=== PATIENT | female | born 1975 | race American Indian/Alaskan Native ===

== ENCOUNTER 2018-10-22 11:49 | Inpatient (IN) | payer MEDICAID ==
[2018-10-22] MEDS ORDERED: BENTYL PO PRN (12:00)
[2018-10-22] MEDS ORDERED: ZOFRAN IV PRN (12:00)
[2018-10-22] MEDS ORDERED: IBUPROFEN PO PRN (12:00)
[2018-10-22] MEDS ORDERED: IMODIUM PO PRN (12:00)
[2018-10-22] MEDS ORDERED: DULCOLAX PR PRN (12:00)
[2018-10-22] MEDS ORDERED: ZOFRAN ODT PO PRN (12:00)
[2018-10-22] MEDS ORDERED: VISTARIL PO PRN (12:00)
[2018-10-22] MEDS ORDERED: ATIVAN IV PRN ×2 (12:00)
[2018-10-22] MEDS ORDERED: ROBAXIN PO PRN (13:00)
[2018-10-22] MEDS ORDERED: SENOKOT PO PRN (13:30)
[2018-10-22] MEDS ORDERED: VITAMIN B-1 100 MG, FOLVITE 1 MG, INFUVITE 10 ML in LACTATED RINGERS 1,000 ML IV ONE (14:00)
[2018-10-22] MEDS ORDERED: TYLENOL PO PRN (14:00)
[2018-10-22] MEDS ORDERED: ALUM-MAG HYDROX-SIMETH 200-200-20MG/5ML PO PRN (14:00)
[2018-10-22] MEDS: ATIVAN PO SCH ×3 (14:37→21:06)
[2018-10-22 15:17] LABS: INR 0.85 (0.87-1.13)
[2018-10-22 15:18] LABS: Hematocrit 37.3 % (30.3-42.9); Hemoglobin 12.4 gm/dl (10.1-14.3); Mean Corpuscular HGB Conc 33 % (30-34); Mean Corpuscular Volume 87 fl (79-97); Platelet Count 244 K/mm3 (140-440); Red Blood Count 4.27 M/mm3 (3.65-5.03); Red Cell Distribution Width 19.8 % (13.2-15.2)
[2018-10-22 15:23] LABS: Alanine Aminotransferase 39 units/L (7-56); Albumin 4.4 g/dL (3.9-5); BUN/Creatinine Ratio 18; Blood Urea Nitrogen 9 mg/dL (7-17); Calcium 9.5 mg/dL (8.4-10.2); Hemolysis Index 11
[2018-10-22 15:33] LABS: Bilirubin,Urine NEG (Negative); Blood,Urine NEG (Negative); Color,Urine Yellow (Yellow); Urobilinogen,Urine < 2.0 mg/dL (<2.0)
[2018-10-22 15:38] LABS: Amphetamine Screen,Urine PRESUMPTIVE NEGATIVE; Benzodiazepines Screen,Urine PRESUMPTIVE NEGATIVE; Cocaine Screen,Urine PRESUMPTIVE NEGATIVE; Methadone Screen,Urine PRESUMPTIVE NEGATIVE; Opiate Screen,Urine PRESUMPTIVE NEGATIVE
[2018-10-22 15:50] LABS: Cannabinoid Screen,Urine PRESUMPTIVE POSITIVE
[2018-10-22] MEDS: HABITROL TD PRN (15:57)
[2018-10-22] MEDS: LOVENOX SUB-Q SCH (15:57)
[2018-10-22] MEDS: NACL 0.9% 1000 ML 1,000 ML IV SCH (21:05)
[2018-10-22] MEDS: DESYREL PO SCH (21:06)
[2018-10-23] MEDS: ATIVAN PO SCH ×3 (02:59→09:00)
[2018-10-23] MEDS ORDERED: ATIVAN PO SCH ×2 (04:00→16:00)
--- NOTE | 2018-10-23 05:24 | History and Physical Report ---
History of Present Illness Date of examination: 10/22/18 Date of admission: 10/22/18 12:30 Chief complaint: Etof dependence for 20 years History of present illness: 43 y/o AAF with Hx of HTN has been ETODH dependent for 20 years.Heavy Alcohol use for 3 years.Patient drinks about 1 pint of Saba nearly every day for the last 3 years.Wants help with dependence and withdrawal symptoms.Patient has kecia nervous and Fidgety for last few days.No seizures. Past History Past Medical History: hypertension Past Surgical History: Other (LEAP ) Social history: lives with family, smoking (1 ppd), alcohol abuse (1 pint Saba every day), full code Family history: hypertension Medications and Allergies Allergies Allergy/AdvReac Type Severity Reaction Status Date / Time FRANK Inhibitors Allergy Hives Verified 08/28/18 04:37 hydrochlorothiazide Allergy Hives Verified 08/28/18 04:37 Home Medications Medication Instructions Recorded Confirmed Last Taken Type Amlodipine Besylate [Norvasc] 10 mg PO DAILY 10/22/18 10/22/18 10/22/17 09:00 History Atenolol [Tenormin] 25 mg PO DAILY 10/22/18 10/22/18 10/22/18 09:00 History AtorvaSTATin 10 mg PO DAILY 10/22/18 10/22/18 10/22/18 09:00 History Benztropine [Cogentin] 0.5 mg PO BID 10/22/18 10/22/18 10/20/18 09:00 History OLANZapine 20 mg PO HS 10/22/18 10/22/18 10/21/18 21:00 History clonazePAM [Klonopin] 1 mg PO DAILY PRN 10/22/18 10/22/18 10/22/18 09:00 History Active Meds: Active Medications Acetaminophen (Tylenol) 500 mg PO Q4H PRN PRN Reason: Temp > 100.4 Al Hydrox/Mg Hydrox/Simethicone (Alum-Mag Hydrox-Simeth [phone]/5ml) 30 ml PO Q6H PRN PRN Reason: Dyspepsia Bisacodyl (Dulcolax) 10 mg GA QDAY PRN PRN Reason: Bowel Movement Dicyclomine HCl (Bentyl) 20 mg PO Q6H PRN PRN Reason: Abdominal Discomfort Enoxaparin Sodium (Lovenox) 40 mg SUB-Q QDAY [facility] Last Admin: 10/22/18 15:57 Dose: 40 mg Documented by: Folic Acid (Folvite) 1 mg PO QDAY [facility] Hydroxyzine Pamoate (Vistaril) 50 mg PO Q6H PRN PRN Reason: Anxiety Mild Sodium Chloride (Nacl 0.9% 1000 Ml) 1,000 mls @ 75 mls/hr IV DIRECT [facility] Last Admin: 10/22/18 21:05 Dose: 75 mls/hr Documented by: Ibuprofen (Motrin) 600 mg PO Q8H PRN PRN Reason: Pain, Mild (1-3) Loperamide HCl (Imodium) 2 mg PO Q8H PRN PRN Reason: Diarrhea Lorazepam (Ativan) 1 mg IV Q4H PRN PRN Reason: Anxiety Severe Lorazepam (Ativan) 1 mg PO Q4HR [facility] Stop: 10/23/18 10:01 Last Admin: 10/23/18 02:59 Dose: 1 mg Documented by: Lorazepam (Ativan) 2 mg IV PRN PRN PRN Reason: Seizures Lorazepam (Ativan) 1 mg PO Q6HR [facility] Stop: 10/24/18 06:01 Lorazepam (Ativan) 1 mg PO Q8HR [facility] Stop: 10/25/18 06:01 Methocarbamol (Robaxin) 750 mg PO Q6H PRN PRN Reason: Muscle Ache Multivitamins (Theragran Tab) 1 each PO QDAY [facility] Nicotine (Habitrol) 21 mg TD QDAY PRN PRN Reason: Smoking Cessation Last Admin: 10/22/18 15:57 Dose: 21 mg Documented by: Ondansetron HCl (Zofran) 4 mg IV Q6H PRN PRN Reason: Moderat/Severe Nausea/Vomiting Ondansetron HCl (Zofran Odt) 4 mg PO Q6H PRN PRN Reason: Mild / Nausea And Vomiting Senna (Senokot) 17.2 mg PO QHS PRN PRN Reason: Constipation Thiamine HCl (Vitamin B-1) 100 mg PO QDAY [facility] Trazodone HCl (Desyrel) 50 mg PO QHS [facility] Last Admin: 10/22/18 21:06 Dose: 50 mg Documented by: Review of Systems All systems: negative Constitutional: fatigue, weakness, poor appetite Ears, nose, mouth and throat: no dysphagia, no hoarseness, no sore throat Breasts: deferred Cardiovascular: no chest pain, no orthopnea, no palpitations, no rapid/irregular heart beat, no shortness of breath Respiratory: no cough, no cough with sputum, no dyspnea on exertion Musculoskeletal: no neck stiffness, no neck pain, no shooting arm pain Integumentary: no rash, no pruritis, no redness Neurological: tremors, no seizures, no syncope Psychiatric: anxiety, difficulties concentrating, confusion, irritability Endocrine: no cold intolerance, no heat intolerance, no polyphagia, no excessive thirst Hematologic/Lymphatic: no easy bruising, no easy bleeding Allergic/Immunologic: no urticaria, no allergic rhinitis Exam - Constitutional Vitals: Temp Pulse Resp BP Pulse Ox 98.2 F 103 H 18 148/105 98 10/23/18 03:13 10/22/18 23:46 10/23/18 03:13 10/23/18 03:13 10/22/18 23:46 General appearance: Present: no acute distress, well-nourished - EENT Eyes: Present: PERRL ENT: hearing intact, clear oral mucosa - Neck Neck: Present: supple, normal ROM - Respiratory Respiratory effort: normal Respiratory: bilateral: CTA - Cardiovascular Heart rate: 78 Rhythm: regular Heart Sounds: Present: S1 & S2. Absent: rub, click - Extremities Extremities: no ischemia, pulses intact, pulses symmetrical, No edema Peripheral Pulses: within normal limits - Abdominal General gastrointestinal: Present: soft, non-tender, non-distended, normal bowel sounds Female genitourinary: Present: normal - Rectal Rectal Exam: deferred - Integumentary Integumentary: Present: clear, warm, dry - Musculoskeletal Musculoskeletal: gait normal, strength equal bilaterally - Psychiatric Psychiatric: appropriate mood/affect, intact judgment & insight - Neurologic Neurologic: CNII-XII intact, moves all extremities - Allied Health Allied health notes reviewed: nursing, case management Results - Labs CBC & Chem 7: 10/22/18 14:47 10/22/18 14:47 Labs: Laboratory Last Values WBC 5.7 K/mm3 (4.5-11.0) 10/22/18 14:47 RBC 4.27 M/mm3 (3.65-5.03) 10/22/18 14:47 Hgb 12.4 gm/dl (10.1-14.3) 10/22/18 14:47 Hct 37.3 % (30.3-42.9) 10/22/18 14:47 MCV 87 fl (79-97) 10/22/18 14:47 MCH 29 pg (28-32) 10/22/18 14:47 MCHC 33 % (30-34) 10/22/18 14:47 RDW 19.8 % (13.2-15.2) H 10/22/18 14:47 Plt Count 244 K/mm3 (140-440) 10/22/18 14:47 PT 12.0 Sec. (12.2-14.9) L 10/22/18 14:47 INR 0.85 (0.87-1.13) L 10/22/18 14:47 Sodium 136 mmol/L (137-145) L 10/22/18 14:47 Potassium 4.5 mmol/L (3.6-5.0) 10/22/18 14:47 Chloride 95.8 mmol/L (98-107) L 10/22/18 14:47 Carbon Dioxide 27 mmol/L (22-30) 10/22/18 14:47 Anion Gap 18 mmol/L 10/22/18 14:47 BUN 9 mg/dL (7-17) 10/22/18 14:47 Creatinine 0.5 mg/dL (0.7-1.2) L 10/22/18 14:47 Estimated GFR > 60 ml/min 10/22/18 14:47 BUN/Creatinine Ratio 18 % 10/22/18 14:47 Glucose 91 mg/dL (65-100) 10/22/18 14:47 Calcium 9.5 mg/dL (8.4-10.2) 10/22/18 14:47 Total Bilirubin 0.50 mg/dL (0.1-1.2) 10/22/18 14:47 AST 153 units/L (5-40) H 10/22/18 14:47 ALT 39 units/L (7-56) 10/22/18 14:47 Alkaline Phosphatase 63 units/L (35-129) 10/22/18 14:47 Total Protein 7.9 g/dL (6.3-8.2) 10/22/18 14:47 Albumin 4.4 g/dL (3.9-5) 10/22/18 14:47 Albumin/Globulin Ratio 1.3 % 10/22/18 14:47 Amylase 183 units/L (27-131) H 10/22/18 14:47 Lipase 35 units/L (13-60) 10/22/18 14:47 Urine Color Yellow (Yellow) 10/22/18 13:39 Urine Turbidity Clear (Clear) 10/22/18 13:39 Urine pH 6.0 (5.0-7.0) 10/22/18 13:39 Ur Specific [place] 1.015 (1.003-1.030) 10/22/18 13:39 Urine Protein 30 mg/dl mg/dL (Negative) 10/22/18 13:39 Urine Glucose (UA) Neg mg/dL (Negative) 10/22/18 13:39 Urine Ketones Neg mg/dL (Negative) 10/22/18 13:39 Urine Blood Neg (Negative) 10/22/18 13:39 Urine Nitrite Neg (Negative) 10/22/18 13:39 Urine Bilirubin Neg (Negative) 10/22/18 13:39 Urine Urobilinogen < 2.0 mg/dL (<2.0) 10/22/18 13:39 Ur Leukocyte Esterase Neg (Negative) 10/22/18 13:39 Urine WBC (Auto) 1.0 /HPF (0.0-6.0) 10/22/18 13:39 Urine RBC (Auto) 1.0 /HPF (0.0-6.0) 10/22/18 13:39 U Epithel Cells (Auto) < 1.0 /HPF (0-13.0) 10/22/18 13:39 Urine Opiates Screen Presumptive negative 10/22/18 14:47 Urine Methadone Screen Presumptive negative 10/22/18 14:47 Ur Barbiturates Screen Presumptive negative 10/22/18 14:47 Ur Phencyclidine Scrn Presumptive negative 10/22/18 14:47 Ur Amphetamines Screen Presumptive negative 10/22/18 14:47 U Benzodiazepines Scrn Presumptive negative 10/22/18 14:47 Urine Cocaine Screen Presumptive negative 10/22/18 14:47 U Marijuana (THC) Screen Presumptive positive 10/22/18 14:47 Drugs of Abuse Note Disclamer 10/22/18 14:47 Plasma/Serum Alcohol < 0.01 % (0-0.07) 10/22/18 14:47 Assessment and Plan Advance Directives: Yes (FC) VTE prophylaxis?: Chemical Plan of care discussed with patient/family: Yes - Patient Problems (1) EtOH dependence Current Visit: Yes Status: Chronic Qualifiers: Substance use status: in withdrawal Complication of substance-induced condition: with unspecified complication Qualified Code(s): F10.239 - Alcohol dependence with withdrawal, unspecified Plan to address problem: On Standard medication orders and General orders and Lorazepam taper for 3 days (2) HTN (hypertension) Current Visit: Yes Status: Chronic Qualifiers: Hypertension type: essential hypertension Qualified Code(s): I10 - Essential (primary) hypertension Plan to address problem: COnt antihypertensives (3) HLD (hyperlipidemia) Current Visit: Yes Status: Chronic Qualifiers: Hyperlipidemia type: mixed hyperlipidemia Qualified Code(s): E78.2 - Mixed hyperlipidemia Plan to address problem: Cont statins (4) Nicotine dependence Current Visit: Yes Status: Chronic Qualifiers: Nicotine product type: cigarettes Plan to address problem: Nicoderm patch added Counselled about smoking (5) DVT prophylaxis Current Visit: Yes Status: Acute Plan to address problem: OnLovenox and GI prophylaxis
[2018-10-23] MEDS: FOLVITE PO SCH (08:59)
[2018-10-23] MEDS: THERAGRAN Tab PO SCH (08:59)
[2018-10-23] MEDS: VITAMIN B-1 PO SCH (08:59)
[2018-10-23] MEDS: LOVENOX SUB-Q SCH (09:00)
[2018-10-23] MEDS: NACL 0.9% 1000 ML 1,000 ML IV SCH (11:22)
--- NOTE | 2018-10-23 12:53 | Progress Note ---
Assessment and Plan Assessment and plan: Patient is a 43 yo black woman with a history of bipolar disorder, dyslipidemia, hypertension and alcohol dependency who presents to [facility] Medical stabilization unit a direct admit for alcohol Detox aka medical stabilization. -Alcohol Dependency: [facility] protocol -Hypertension: continue antihypertensives, low salt diet -Dyslipidemia: Lipitor -Bipolar Disorder: continue Olazapine and Cogentin History Interval history: Patient was seen and examined. Follow-up on current diagnosis. Overnight uneventful. Patient denies any chest pain, shortness breath, nausea/vomiting or severe headaches. Imaging, nursing note, chart, labs and old chart reviewed. Discussed with patient. Hospitalist Physical - Physical exam Narrative exam: Gen: WDWN, NAD, Awake, Alert, Orientated HEENT: NCAT, EOMI, PERRL, OP Clear Neck: supple, no adenopathy, no thyromegaly, no JVD CVS/Heart: RRR, normal S1S2, pulses present bilaterally Chest/Lungs: CTA B, Symmetrical chest expansion, good air entry bilaterally GI/Abdomen: soft, NTND, good bowel sounds, no guarding or rebound /Bladder: no suprapubic tenderness, no CVA or paraspinal tenderness Extermity/Skin: no c/c/e, no obvious rash MSK: FROM x 4 Neuro: CN 2-12 grossly intact, no new focal deficits Psych: calm - Constitutional Vitals: Temp Pulse Resp BP Pulse Ox 98.3 F 93 H 18 134/100 92 10/23/18 11:48 10/23/18 08:15 10/23/18 11:48 10/23/18 11:48 10/23/18 11:48 General appearance: Present: no acute distress, well-nourished Results - Labs CBC & Chem 7: 10/22/18 14:47 10/22/18 14:47 Labs: Laboratory Last Values WBC 5.7 K/mm3 (4.5-11.0) 10/22/18 14:47 RBC 4.27 M/mm3 (3.65-5.03) 10/22/18 14:47 Hgb 12.4 gm/dl (10.1-14.3) 10/22/18 14:47 Hct 37.3 % (30.3-42.9) 10/22/18 14:47 MCV 87 fl (79-97) 10/22/18 14:47 MCH 29 pg (28-32) 10/22/18 14:47 MCHC 33 % (30-34) 10/22/18 14:47 RDW 19.8 % (13.2-15.2) H 10/22/18 14:47 Plt Count 244 K/mm3 (140-440) 10/22/18 14:47 PT 12.0 Sec. (12.2-14.9) L 10/22/18 14:47 INR 0.85 (0.87-1.13) L 10/22/18 14:47 Sodium 136 mmol/L (137-145) L 10/22/18 14:47 Potassium 4.5 mmol/L (3.6-5.0) 10/22/18 14:47 Chloride 95.8 mmol/L (98-107) L 10/22/18 14:47 Carbon Dioxide 27 mmol/L (22-30) 10/22/18 14:47 Anion Gap 18 mmol/L 10/22/18 14:47 BUN 9 mg/dL (7-17) 10/22/18 14:47 Creatinine 0.5 mg/dL (0.7-1.2) L 10/22/18 14:47 Estimated GFR > 60 ml/min 10/22/18 14:47 BUN/Creatinine Ratio 18 % 10/22/18 14:47 Glucose 91 mg/dL (65-100) 10/22/18 14:47 Calcium 9.5 mg/dL (8.4-10.2) 10/22/18 14:47 Total Bilirubin 0.50 mg/dL (0.1-1.2) 10/22/18 14:47 AST 153 units/L (5-40) H 10/22/18 14:47 ALT 39 units/L (7-56) 10/22/18 14:47 Alkaline Phosphatase 63 units/L (35-129) 10/22/18 14:47 Total Protein 7.9 g/dL (6.3-8.2) 10/22/18 14:47 Albumin 4.4 g/dL (3.9-5) 10/22/18 14:47 Albumin/Globulin Ratio 1.3 % 10/22/18 14:47 Amylase 183 units/L (27-131) H 10/22/18 14:47 Lipase 35 units/L (13-60) 10/22/18 14:47 Urine Color Yellow (Yellow) 10/22/18 13:39 Urine Turbidity Clear (Clear) 10/22/18 13:39 Urine pH 6.0 (5.0-7.0) 10/22/18 13:39 Ur Specific [place] 1.015 (1.003-1.030) 10/22/18 13:39 Urine Protein 30 mg/dl mg/dL (Negative) 10/22/18 13:39 Urine Glucose (UA) Neg mg/dL (Negative) 10/22/18 13:39 Urine Ketones Neg mg/dL (Negative) 10/22/18 13:39 Urine Blood Neg (Negative) 10/22/18 13:39 Urine Nitrite Neg (Negative) 10/22/18 13:39 Urine Bilirubin Neg (Negative) 10/22/18 13:39 Urine Urobilinogen < 2.0 mg/dL (<2.0) 10/22/18 13:39 Ur Leukocyte Esterase Neg (Negative) 10/22/18 13:39 Urine WBC (Auto) 1.0 /HPF (0.0-6.0) 10/22/18 13:39 Urine RBC (Auto) 1.0 /HPF (0.0-6.0) 10/22/18 13:39 U Epithel Cells (Auto) < 1.0 /HPF (0-13.0) 10/22/18 13:39 Urine Opiates Screen Presumptive negative 10/22/18 14:47 Urine Methadone Screen Presumptive negative 10/22/18 14:47 Ur Barbiturates Screen Presumptive negative 10/22/18 14:47 Ur Phencyclidine Scrn Presumptive negative 10/22/18 14:47 Ur Amphetamines Screen Presumptive negative 10/22/18 14:47 U Benzodiazepines Scrn Presumptive negative 10/22/18 14:47 Urine Cocaine Screen Presumptive negative 10/22/18 14:47 U Marijuana (THC) Screen Presumptive positive 10/22/18 14:47 Drugs of Abuse Note Disclamer 10/22/18 14:47 Plasma/Serum Alcohol < 0.01 % (0-0.07) 10/22/18 14:47
[2018-10-23] MEDS: NORVASC PO SCH (13:06)
[2018-10-23] MEDS: TENORMIN PO SCH (13:10)
[2018-10-23] MEDS: HABITROL TD PRN (19:50)
[2018-10-23] MEDS: COGENTIN PO SCH (21:18)
[2018-10-23] MEDS: DESYREL PO SCH (21:19)
[2018-10-23] MEDS ORDERED: NON-FORMULARY (Atorvastatin 10 MG) PO SCH (22:00)
[2018-10-23] MEDS ORDERED: OLANZAPINE 20 MG PO SCH (22:00)
[2018-10-24] MEDS: NACL 0.9% 1000 ML 1,000 ML IV SCH (01:37)
[2018-10-24] MEDS: TENORMIN PO SCH (10:13)
[2018-10-24] MEDS: LOVENOX SUB-Q SCH (10:13)
[2018-10-24] MEDS: FOLVITE PO SCH (10:14)
[2018-10-24] MEDS: COGENTIN PO SCH ×2 (10:14→21:16)
[2018-10-24] MEDS: THERAGRAN Tab PO SCH (10:14)
[2018-10-24] MEDS: VITAMIN B-1 PO SCH (10:14)
[2018-10-24] MEDS: NORVASC PO SCH (10:15)
[2018-10-24] MEDS ORDERED: ATIVAN PO SCH (14:00)
[2018-10-24] MEDS: ATIVAN PO SCH (17:21)
--- NOTE | 2018-10-24 18:18 | Progress Note ---
Assessment and Plan Assessment and plan: Patient is a 43 yo black woman with a history of bipolar disorder, dyslipidemia, hypertension and alcohol dependency who presents to [facility] Medical stabilization unit a direct admit for alcohol Detox aka medical stabilization. -Alcohol Dependency: [facility]SU protocol -Hypertension: continue antihypertensives, low salt diet -Dyslipidemia: Lipitor -Bipolar Disorder: continue Olazapine and Cogentin History Interval history: Patient was seen and examined. Follow-up on current diagnosis. Overnight uneventful. Patient denies any chest pain, shortness breath, nausea/vomiting or severe headaches. Imaging, nursing note, chart, labs and old chart reviewed. Discussed with patient. Hospitalist Physical - Physical exam Narrative exam: Gen: WDWN, NAD, Awake, Alert, Orientated HEENT: NCAT, EOMI, PERRL, OP Clear Neck: supple, no adenopathy, no thyromegaly, no JVD CVS/Heart: RRR, normal S1S2, pulses present bilaterally Chest/Lungs: CTA B, Symmetrical chest expansion, good air entry bilaterally GI/Abdomen: soft, NTND, good bowel sounds, no guarding or rebound /Bladder: no suprapubic tenderness, no CVA or paraspinal tenderness Extermity/Skin: no c/c/e, no obvious rash MSK: FROM x 4 Neuro: CN 2-12 grossly intact, no new focal deficits Psych: calm - Constitutional Vitals: Temp Pulse Resp BP Pulse Ox 98.9 F 68 20 113/77 99 10/24/18 16:28 10/24/18 16:28 10/24/18 16:28 10/24/18 16:28 10/24/18 16:28 General appearance: Present: no acute distress, well-nourished Results - Labs CBC & Chem 7: 10/22/18 14:47 10/22/18 14:47 Labs: Laboratory Last Values WBC 5.7 K/mm3 (4.5-11.0) 10/22/18 14:47 RBC 4.27 M/mm3 (3.65-5.03) 10/22/18 14:47 Hgb 12.4 gm/dl (10.1-14.3) 10/22/18 14:47 Hct 37.3 % (30.3-42.9) 10/22/18 14:47 MCV 87 fl (79-97) 10/22/18 14:47 MCH 29 pg (28-32) 10/22/18 14:47 MCHC 33 % (30-34) 10/22/18 14:47 RDW 19.8 % (13.2-15.2) H 10/22/18 14:47 Plt Count 244 K/mm3 (140-440) 10/22/18 14:47 PT 12.0 Sec. (12.2-14.9) L 10/22/18 14:47 INR 0.85 (0.87-1.13) L 10/22/18 14:47 Sodium 136 mmol/L (137-145) L 10/22/18 14:47 Potassium 4.5 mmol/L (3.6-5.0) 10/22/18 14:47 Chloride 95.8 mmol/L (98-107) L 10/22/18 14:47 Carbon Dioxide 27 mmol/L (22-30) 10/22/18 14:47 Anion Gap 18 mmol/L 10/22/18 14:47 BUN 9 mg/dL (7-17) 10/22/18 14:47 Creatinine 0.5 mg/dL (0.7-1.2) L 10/22/18 14:47 Estimated GFR > 60 ml/min 10/22/18 14:47 BUN/Creatinine Ratio 18 % 10/22/18 14:47 Glucose 91 mg/dL (65-100) 10/22/18 14:47 Calcium 9.5 mg/dL (8.4-10.2) 10/22/18 14:47 Total Bilirubin 0.50 mg/dL (0.1-1.2) 10/22/18 14:47 AST 153 units/L (5-40) H 10/22/18 14:47 ALT 39 units/L (7-56) 10/22/18 14:47 Alkaline Phosphatase 63 units/L (35-129) 10/22/18 14:47 Total Protein 7.9 g/dL (6.3-8.2) 10/22/18 14:47 Albumin 4.4 g/dL (3.9-5) 10/22/18 14:47 Albumin/Globulin Ratio 1.3 % 10/22/18 14:47 Amylase 183 units/L (27-131) H 10/22/18 14:47 Lipase 35 units/L (13-60) 10/22/18 14:47 Urine Color Yellow (Yellow) 10/22/18 13:39 Urine Turbidity Clear (Clear) 10/22/18 13:39 Urine pH 6.0 (5.0-7.0) 10/22/18 13:39 Ur Specific [place] 1.015 (1.003-1.030) 10/22/18 13:39 Urine Protein 30 mg/dl mg/dL (Negative) 10/22/18 13:39 Urine Glucose (UA) Neg mg/dL (Negative) 10/22/18 13:39 Urine Ketones Neg mg/dL (Negative) 10/22/18 13:39 Urine Blood Neg (Negative) 10/22/18 13:39 Urine Nitrite Neg (Negative) 10/22/18 13:39 Urine Bilirubin Neg (Negative) 10/22/18 13:39 Urine Urobilinogen < 2.0 mg/dL (<2.0) 10/22/18 13:39 Ur Leukocyte Esterase Neg (Negative) 10/22/18 13:39 Urine WBC (Auto) 1.0 /HPF (0.0-6.0) 10/22/18 13:39 Urine RBC (Auto) 1.0 /HPF (0.0-6.0) 10/22/18 13:39 U Epithel Cells (Auto) < 1.0 /HPF (0-13.0) 10/22/18 13:39 Urine Opiates Screen Presumptive negative 10/22/18 14:47 Urine Methadone Screen Presumptive negative 10/22/18 14:47 Ur Barbiturates Screen Presumptive negative 10/22/18 14:47 Ur Phencyclidine Scrn Presumptive negative 10/22/18 14:47 Ur Amphetamines Screen Presumptive negative 10/22/18 14:47 U Benzodiazepines Scrn Presumptive negative 10/22/18 14:47 Urine Cocaine Screen Presumptive negative 10/22/18 14:47 U Marijuana (THC) Screen Presumptive positive 10/22/18 14:47 Drugs of Abuse Note Disclamer 10/22/18 14:47 Plasma/Serum Alcohol < 0.01 % (0-0.07) 10/22/18 14:47
[2018-10-24] MEDS: DESYREL PO SCH (21:16)
[2018-10-25] MEDS: NACL 0.9% 1000 ML 1,000 ML IV SCH (01:44)
[2018-10-25] MEDS: ATIVAN PO SCH ×2 (03:01→10:03)
[2018-10-25] MEDS: FOLVITE PO SCH (09:59)
[2018-10-25] MEDS: THERAGRAN Tab PO SCH (09:59)
[2018-10-25] MEDS: COGENTIN PO SCH (09:59)
[2018-10-25] MEDS: NORVASC PO SCH (09:59)
[2018-10-25] MEDS: VITAMIN B-1 PO SCH (09:59)
[2018-10-25] MEDS: LOVENOX SUB-Q SCH (10:00)
[2018-10-25] MEDS: TENORMIN PO SCH (10:00)
--- NOTE | 2018-10-25 14:52 | Discharge Summary ---
Providers - Providers Date of Admission: 10/22/18 12:30 Date of discharge: 10/25/18 Attending physician: FATEMEH MOORE Primary care physician: JAVY ANTONIO MD Hospitalization Condition: Stable Hospital course: Patient is a 43 yo black woman with a history of bipolar disorder, dyslipidemia, hypertension and alcohol dependency who presents to [facility] Medical stabilization unit a direct admit for alcohol Detox aka medical stabilization. -Alcohol Dependency: [facility] protocol -Hypertension: continue antihypertensives, low salt diet -Dyslipidemia: Lipitor -Bipolar Disorder: continue Olazapine and Cogentin Disposition: DC-01 TO HOME OR SELFCARE Time spent for discharge: 34 min Core Measure Documentation - Palliative Care Palliative Care/ Comfort Measures: Not Applicable - Core Measures Any of the following diagnoses?: none - VTE Discharge Requirements Deep Vein Thrombosis/Pulmonary Embolism Present on Admission: No Has pt received <5 days of overlap therapy or INR<2.0: No Anticoagulant overlap therapy prescribed at discharge: No Contraindication No Overlap Therapy order at DC: Not Indicated Exam - Physical Exam Narrative exam: Gen: WDWN, NAD, Awake, Alert, Orientated HEENT: NCAT, EOMI, PERRL, OP Clear Neck: supple, no adenopathy, no thyromegaly, no JVD CVS/Heart: RRR, normal S1S2, pulses present bilaterally Chest/Lungs: CTA B, Symmetrical chest expansion, good air entry bilaterally GI/Abdomen: soft, NTND, good bowel sounds, no guarding or rebound /Bladder: no suprapubic tenderness, no CVA or paraspinal tenderness Extermity/Skin: no c/c/e, no obvious rash MSK: FROM x 4 Neuro: CN 2-12 grossly intact, no new focal deficits Psych: calm - Constitutional Vitals: Temp Pulse Resp BP Pulse Ox 98.3 F 82 17 146/96 99 10/25/18 07:30 10/25/18 10:00 10/25/18 07:30 10/25/18 10:00 10/25/18 07:30 Plan Activity: other (no strenous activity until cleared by [facility]) Diet: regular Follow up with: PRIMARY CARE, [Primary Care Provider] - 7 Days Prescriptions: Thiamine [Vitamin B-1] 100 mg PO QDAY #30 tablet
[2018-10-25 16:19] VITALS: BP 123/96
== END 2018-10-25 17:00 | disposition home or self-care (01) | DRG 896 ==
LOC: 2B-ACE 11:49 → UNDOADMIN 11:49 → MSU 12:30
PROVIDERS: ADMIT Internal Medicine; ATTEND Internal Medicine
DX: F10.239 Alcohol dependence with withdrawal, unspecified (principal); G93.40 Encephalopathy, unspecified; R74.0 Nonspecific elevation of levels of transaminase and lactic acid dehydrogenase [LDH]; I10 Essential (primary) hypertension; F17.210 Nicotine dependence, cigarettes, uncomplicated; E78.2 Mixed hyperlipidemia; F31.9 Bipolar disorder, unspecified; Z88.8 Allergy status to other drugs, medicaments and biological substances; Z79.899 Other long term (current) drug therapy; Z82.49 Family history of ischemic heart disease and other diseases of the circulatory system
CPT/HCPCS: 36415; 80053; 80307; 80320; 81001; 82150; 83690; 85027; 85610; 93005; 93010; G0378; A9270-GY; G0480; J1650; J2060; J3411; J7030; J7120

== ENCOUNTER 2019-01-03 04:38 | Emergency (ER) | payer MEDICAID ==
[2019-01-03 04:46] VITALS: BP 119/92
[2019-01-03] MEDS ORDERED: NACL 0.9% 1000 ML 1,000 ML IV ONE (05:06)
[2019-01-03 06:08] LABS: Basophils # (Auto) 0.1 K/mm3 (0.0-0.1); Eosinophils % (Auto) 0.7 % (0.0-4.3); Hemoglobin 13.6 gm/dl (10.1-14.3); Lymphocytes # (Auto) 1.8 K/mm3 (1.2-5.4); Mean Corpuscular HGB Conc 34 % (30-34); Mean Corpuscular Volume 86 fl (79-97); Monocytes # (Auto) 0.5 K/mm3 (0.0-0.8); Monocytes % (Auto) 8.3 % (0.0-7.3); Platelet Count 248 K/mm3 (140-440); Red Blood Count 4.66 M/mm3 (3.65-5.03); Red Cell Distribution Width 17.3 % (13.2-15.2)
[2019-01-03 06:26] LABS: Albumin 3.4 g/dL (3.9-5); BUN/Creatinine Ratio 19; Blood Urea Nitrogen 13 mg/dL (7-17); Calcium 8.7 mg/dL (8.4-10.2); Hemolysis Index 64
[2019-01-03 06:42] LABS: Alanine Aminotransferase 59 units/L (7-56)
[2019-01-03] MEDS ORDERED: ZOFRAN IV ONE (07:09)
[2019-01-03] MEDS ORDERED: MORPHINE IV ONE (07:09)
[2019-01-03 07:12] LABS: Bilirubin,Urine NEG (Negative); Blood,Urine NEG (Negative); Color,Urine Yellow (Yellow); Mucus,Urine FEW /HPF; Protein,Urine <15 mg/dL mg/dL (Negative)
--- NOTE | 2019-01-03 07:15 | Emergency Department Report ---
ED Abdominal Pain HPI - General Chief Complaint: Abdominal Pain Stated Complaint: STOMACH PAIN Time Seen by Provider: 01/03/19 07:06 Source: patient Mode of arrival: Ambulatory Limitations: No Limitations - History of Present Illness Initial Comments: This is a 43-year-old female nontoxic, well nourished in appearance, no acute signs of distress presents to the ED with c/o of nausea and vomiting and abdominal pain 1 month. Patient describes vomiting as food content and yellow gastric acid. Patient describes abdominal pain as cramping and aching with level of 10/10 diffuse. Patient denies chest pain, short of breath, fever, chills, headache, stiff neck, numbness or tingling. Patient agrees to drinking alcohol daily. Patient denies any diarrhea or constipation. Patient denies any recent travels. Patient stated allergies to HCTZ and Marty inhibitors. Patient denies any significant PMH. MD Complaint: abdominal pain -: month(s) (1) Location: diffuse Radiation: none Migration to: no migration Severity: mild Severity scale (0 -10): 10 Quality: cramping, aching Consistency: constant Improves With: nothing Worsens With: nothing Associated Symptoms: nausea, vomiting. denies: diarrhea, fever, chills, constipation, dysuria, hematemesis, hematochezia, melena, hematuria, anorexia, syncope - Related Data Home Medications Medication Instructions Recorded Confirmed Last Taken Amlodipine Besylate [Norvasc] 10 mg PO DAILY 10/22/18 10/22/18 10/22/17 09:00 Atenolol [Tenormin] 25 mg PO DAILY 10/22/18 10/22/18 10/22/18 09:00 AtorvaSTATin 10 mg PO DAILY 10/22/18 10/22/18 10/22/18 09:00 Benztropine [Cogentin] 0.5 mg PO BID 10/22/18 10/22/18 10/20/18 09:00 OLANZapine 20 mg PO HS 10/22/18 10/22/18 10/21/18 21:00 clonazePAM [Klonopin] 1 mg PO DAILY PRN 10/22/18 10/22/18 10/22/18 09:00 Previous Rx's Medication Instructions Recorded Last Taken Type Thiamine [Vitamin B-1] 100 mg PO QDAY #30 tablet 10/25/18 Unknown Rx Acetaminophen/Codeine [Tylenol 1 tab PO Q6H PRN #12 tab 01/03/19 Unknown Rx /Codeine # 3 tab] Ondansetron [Zofran Odt] 4 mg PO Q8HR PRN #20 tab.rapdis 01/03/19 Unknown Rx Allergies Allergy/AdvReac Type Severity Reaction Status Date / Time MARTY Inhibitors Allergy Hives Verified 08/28/18 04:37 hydrochlorothiazide Allergy Hives Verified 08/28/18 04:37 ED Review of Systems ROS: Stated complaint: STOMACH PAIN Other details as noted in HPI Constitutional: denies: chills, fever Eyes: denies: eye pain, eye discharge, vision change ENT: denies: ear pain, throat pain Respiratory: denies: cough, shortness of breath, wheezing Cardiovascular: denies: chest pain, palpitations Endocrine: no symptoms reported Gastrointestinal: abdominal pain, nausea, vomiting. denies: diarrhea Genitourinary: denies: urgency, dysuria, discharge Musculoskeletal: denies: back pain, joint swelling, arthralgia Skin: denies: rash, lesions Neurological: denies: headache, weakness, paresthesias Psychiatric: denies: anxiety, depression Hematological/Lymphatic: denies: easy bleeding, easy bruising ED Past Medical Hx - Past Medical History Hx Hypertension: Yes Hx Congestive Heart Failure: No Hx Diabetes: No Hx Asthma: No Hx COPD: Yes Additional medical history: high cholesterol - Surgical History Additional Surgical History: thyroid - Social History Smoking Status: Never Smoker Substance Use Type: None - Medications Home Medications: Home Medications Medication Instructions Recorded Confirmed Last Taken Type Amlodipine Besylate [Norvasc] 10 mg PO DAILY 10/22/18 10/22/18 10/22/17 09:00 History Atenolol [Tenormin] 25 mg PO DAILY 10/22/18 10/22/18 10/22/18 09:00 History AtorvaSTATin 10 mg PO DAILY 10/22/18 10/22/18 10/22/18 09:00 History Benztropine [Cogentin] 0.5 mg PO BID 10/22/18 10/22/18 10/20/18 09:00 History OLANZapine 20 mg PO HS 10/22/18 10/22/18 10/21/18 21:00 History clonazePAM [Klonopin] 1 mg PO DAILY PRN 01/01/0510/22/18 10/22/18 09:00 History Thiamine [Vitamin B-1] 100 mg PO QDAY #30 tablet 10/25/18 Unknown Rx Acetaminophen/Codeine [Tylenol 1 tab PO Q6H PRN #12 tab 01/03/19 Unknown Rx /Codeine # 3 tab] Ondansetron [Zofran Odt] 4 mg PO Q8HR PRN #20 tab.rapdis 01/03/19 Unknown Rx ED Physical Exam - General Limitations: No Limitations General appearance: alert, in no apparent distress - Head Head exam: Present: atraumatic, normocephalic - Eye Eye exam: Present: normal appearance - Neck Neck exam: Present: normal inspection, full ROM. Absent: tenderness, meningismus, lymphadenopathy - Respiratory Respiratory exam: Present: normal lung sounds bilaterally. Absent: respiratory distress, wheezes, rales, rhonchi, stridor, chest wall tenderness, accessory muscle use, decreased breath sounds, prolonged expiratory - Cardiovascular Cardiovascular Exam: Present: regular rate, normal rhythm, normal heart sounds. Absent: irregular rhythm, systolic murmur, diastolic murmur, rubs, gallop - GI/Abdominal GI/Abdominal exam: Present: soft, tenderness (diffuse), normal bowel sounds. Absent: distended, guarding, rebound, rigid, diminished bowel sounds - Expanded GI/Abdominal Exam Expanded GI/Abdominal exam: Absent: psoas sign, Doe's sign, Rovsing's sign, tenderness at Mcburney's Point, ascites - Extremities Exam Extremities exam: Present: normal inspection, full ROM - Back Exam Back exam: Present: normal inspection, full ROM. Absent: tenderness, CVA tenderness (R), CVA tenderness (L), muscle spasm, paraspinal tenderness, vertebral tenderness, rash noted - Neurological Exam Neurological exam: Present: alert, oriented X3 - Psychiatric Psychiatric exam: Present: normal affect, normal mood - Skin Skin exam: Present: warm, dry, intact, normal color. Absent: rash ED Course Vital Signs 01/03/19 01/03/19 04:44 05:03 Temperature 97.8 F 97.8 F Pulse Rate 104 H 102 H Respiratory 18 18 Rate Blood Pressure 119/92 119/92 O2 Sat by Pulse 97 97 Oximetry - Reevaluation(s) Reevaluation #1: 01/03/19 07:13 Patient is speaking in full sentences with no signs of distress noted. ED Medical Decision Making - Lab Data Result diagrams: 01/03/19 05:15 01/03/19 05:15 - Medical Decision Making This is a 43-year-old female that presents with abdominal pain with n/v. Patie nt is stable and was examined by me. There is diffuse abdominal tenderness. Negative signs of symptoms of appendicitis. Labs obtained. Lipse within normal limits. UA obtained. CT with contrast of abdomen obtained and dictated by the radiologist. Patient is notified of the report with no questions noted by the patient. Patient was instructed to decrease amount of alcohol and seek medical health for alcohol as her liver is being affected. Vital signs are stable prior to discharge. Patient received medical treatment in the ED which patient stated symptoms has resolved and subsided. A by mouth challenge has been obtained and patient tolerated well with no nausea vomiting. Patient was notified of strict precautions of appendicitis symptoms and to return to the ED if symptoms occurs as soon as possible. Patient was also instructed to Follow-up with a primary care doctor in 3-5 days or if symptoms worsen and continue return to emergency room as soon as possible. At time of discharge, the patient does not seem toxic or ill in appearance. No acute signs of distress noted. Patient agrees to discharge treatment plan of care. No further questions noted by the patient. Critical care attestation.: If time is entered above; I have spent that time in minutes in the direct care of this critically ill patient, excluding procedure time. 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 Prescriptions: Acetaminophen/Codeine [Tylenol /Codeine # 3 tab] 1 tab PO Q6H PRN #12 tab PRN Reason: Pain , Severe (7-10) Ondansetron [Zofran Odt] 4 mg PO Q8HR PRN #20 tab.rapdis PRN Reason: Nausea Referrals: [facility] [Other] - 3-5 Days PRIMARY CAREMD [Referring] - 3-5 Days AIYANA GRAY MD [Staff Physician] - 3-5 Days [facility] [Outside] - 3-5 Days [facility] [Outside] - 3-5 Days [facility] [Provider Group] - 2-3 Days Forms: Work/School Release Form(ED)
--- NOTE | 2019-01-03 08:37 | Cat Scan Report ---
PROCEDURE: CT ABDOMEN PELVIS W CON TECHNIQUE: CT imaging is obtained through the abdomen and pelvis in arterial and delayed phases foll owing intravenous administration of contrast HISTORY: abd pain COMPARISONS: None FINDINGS: Partially visualized intrathoracic contents are unremarkable. The liver, gallbladder, spleen, and adrenal glands are unremarkable. Kidneys show no worrisome lesions, hydronephrosis, or calculi. Ectopic right pelvic kidney. A simple appearing interpolar left renal cyst measures up to 2 cm. Urinary bladder is unremarkable. A couple o f functional right ovarian cyst measuring up to 14 mm. Anteverted uterus. Trace free fluid in the pel vis. Small and large bowel are normal in caliber. There is mild right sided retroperitoneal stranding and edema extending inferiorly from the region of the pancreatic uncinate and adjacent duodenum. The panc reatic body and tail appear normal. There is homogeneous pancreatic enhancement. No intraparenchymal or peripancreatic focal fluid collection identified. No small bowel wall thickening. Appendix is norm al. No pneumoperitoneum or focal fluid collection to suggest abscess formation. Scattered distal colo dustin diverticula without surrounding inflammatory findings. Aorta is normal in course and caliber. Splenic vasculature is normal in caliber and appears patent. Superficial soft tissues are unremarkable. No acute or aggressive appearing skeletal findings. IMPRESSION: Findings are suggestive of uncomplicated acute groove pancreatitis versus duodenitis and secondary in flammation of the pancreatic head and uncinate. Correlation with serum lipase and the patient's sympt oms is requested. This document is electronically signed by Jason Pratt MD., January 03 2019 08:34:56 AM ET
== END 2019-01-03 09:12 | disposition home or self-care (01) ==
LOC: ED 04:38
DX: R10.84 Generalized abdominal pain (principal); R11.2 Nausea with vomiting, unspecified; I10 Essential (primary) hypertension; J44.9 Chronic obstructive pulmonary disease, unspecified; E78.00 Pure hypercholesterolemia, unspecified; Z91.09 Other allergy status, other than to drugs and biological substances; Z88.8 Allergy status to other drugs, medicaments and biological substances
CPT/HCPCS: 36415; 74177; 80053; 81001; 83690; 84703; 85025; 96361; 96374; 96375; 99284; J2270; J2405; J7030; Q9967; 96367

== ENCOUNTER 2019-03-12 02:41 | Observation (INO) | payer MEDICAID ==
[2019-03-12 03:42] LABS: Basophils % (Auto) 0.2 % (0.0-1.8); Eosinophils % (Auto) 0.1 % (0.0-4.3); Hematocrit 37.7 % (30.3-42.9); Hemoglobin 12.4 gm/dl (10.1-14.3); Lymphocytes % (Auto) 9.1 % (13.4-35.0); Mean Corpuscular HGB Conc 33 % (30-34); Mean Corpuscular Volume 91 fl (79-97); Monocytes # (Auto) 0.7 K/mm3 (0.0-0.8); Monocytes % (Auto) 5.9 % (0.0-7.3); Platelet Count 182 K/mm3 (140-440); Red Blood Count 4.16 M/mm3 (3.65-5.03); Red Cell Distribution Width 16.6 % (13.2-15.2)
[2019-03-12 04:09] LABS: Alanine Aminotransferase 26 units/L (7-56); Albumin 4.3 g/dL (3.9-5); BUN/Creatinine Ratio 8; Blood Urea Nitrogen 4 mg/dL (7-17); Calcium 10.1 mg/dL (8.4-10.2); Hemolysis Index 4
[2019-03-12] MEDS ORDERED: ALUM-MAG HYDROX-SIMETH 200-200-20MG/5ML PO ONE (04:25)
[2019-03-12] MEDS ORDERED: LIDOCAINE VISCOUS 2% PO ONE (04:25)
[2019-03-12] MEDS ORDERED: NACL 0.9% 1000 ML 1,000 ML IV ONE (04:26)
[2019-03-12] MEDS ORDERED: ZOFRAN IV ONE (04:26)
[2019-03-12] MEDS ORDERED: PEPCID IV ONE (04:26)
[2019-03-12] MEDS ORDERED: MORPHINE IV ONE ×2 (04:26→06:12)
--- NOTE | 2019-03-12 04:35 | Emergency Department Report ---
ED Abdominal Pain HPI - General Chief Complaint: Abdominal Pain Stated Complaint: ABD/BACK/PAIN/VOMITING Time Seen by Provider: 03/12/19 04:20 Source: patient Mode of arrival: Ambulatory Limitations: No Limitations - History of Present Illness Initial Comments: The patient is a 43 y.o female who presents to the E.R. complaining of epigastric pain that began 2 weeks ago while at rest. Symptoms have been intermittent since onset and pt rates them as moderate in severity. Patient reports the symptoms are located in her upper abdomen and describes the quality as sharp. Pain radiates to throat. Symptoms associated with nausea, but denies any hematemesis, melena or hematochezia. Symptoms are improved with nothing and exacerbated by eating. Patient reports history of similar symptoms. Pertinent medical history includes alcohol abuse, h.pylori. MD Complaint: abdominal pain Onset/Timin -: week(s) Location: epigastric Radiation: other (THROAT) Migration to: no migration Severity: severe Severity scale (0 -10): 7 Quality: stabbing, sharp, dull Consistency: intermittent Improves With: nothing Worsens With: eating Associated Symptoms: nausea, vomiting. denies: chills, constipation, dysuria - Related Data LMP (females 10-50): 1 month Home Medications Medication Instructions Recorded Confirmed Last Taken Amlodipine Besylate [Norvasc] 10 mg PO DAILY 10/22/18 10/22/18 10/22/17 09:00 Atenolol [Tenormin] 25 mg PO DAILY 10/22/18 10/22/18 10/22/18 09:00 AtorvaSTATin 10 mg PO DAILY 10/22/18 10/22/18 10/22/18 09:00 Benztropine [Cogentin] 0.5 mg PO BID 10/22/18 10/22/18 10/20/18 09:00 OLANZapine 20 mg PO HS 10/22/18 10/22/18 10/21/18 21:00 clonazePAM [Klonopin] 1 mg PO DAILY PRN 10/22/18 10/22/18 10/22/18 09:00 Previous Rx's Medication Instructions Recorded Last Taken Type Thiamine [Vitamin B-1] 100 mg PO QDAY #30 tablet 10/25/18 Unknown Rx Acetaminophen/Codeine [Tylenol 1 tab PO Q6H PRN #12 tab 01/03/19 Unknown Rx /Codeine # 3 tab] Ondansetron [Zofran Odt] 4 mg PO Q8HR PRN #20 tab.rapdis 01/03/19 Unknown Rx Allergies Allergy/AdvReac Type Severity Reaction Status Date / Time FRANK Inhibitors Allergy Hives Verified 08/28/18 04:37 hydrochlorothiazide Allergy Hives Verified 08/28/18 04:37 ED Review of Systems ROS: Stated complaint: ABD/BACK/PAIN/VOMITING Other details as noted in HPI Comment: All other systems reviewed and negative Eyes: denies: eye pain ENT: denies: ear pain, throat pain Respiratory: denies: cough Cardiovascular: denies: chest pain Gastrointestinal: abdominal pain, nausea, vomiting. denies: diarrhea ED Past Medical Hx - Past Medical History Previous Medical History?: Yes Hx Hypertension: Yes Hx Congestive Heart Failure: No Hx Diabetes: No Hx Asthma: No Hx COPD: Yes Additional medical history: high cholesterol. h pylori. pancreatisis - Surgical History Past Surgical History?: Yes Additional Surgical History: thyroid. vag ablasion - Social History Smoking Status: Current Every Day Smoker Substance Use Type: Alcohol - Medications Home Medications: Home Medications Medication Instructions Recorded Confirmed Last Taken Type Amlodipine Besylate [Norvasc] 10 mg PO DAILY 10/22/18 10/22/18 10/22/17 09:00 History Atenolol [Tenormin] 25 mg PO DAILY 10/22/18 10/22/18 10/22/18 09:00 History AtorvaSTATin 10 mg PO DAILY 10/22/18 10/22/18 10/22/18 09:00 History Benztropine [Cogentin] 0.5 mg PO BID 10/22/18 10/22/18 10/20/18 09:00 History OLANZapine 20 mg PO HS 10/22/18 10/22/18 10/21/18 21:00 History clonazePAM [Klonopin] 1 mg PO DAILY PRN 10/22/18 10/22/18 10/22/18 09:00 History Thiamine [Vitamin B-1] 100 mg PO QDAY #30 tablet 10/25/18 Unknown Rx Acetaminophen/Codeine [Tylenol 1 tab PO Q6H PRN #12 tab 01/03/19 Unknown Rx /Codeine # 3 tab] Ondansetron [Zofran Odt] 4 mg PO Q8HR PRN #20 tab.rapdis 01/03/19 Unknown Rx ED Physical Exam - General Limitations: No Limitations General appearance: alert, in no apparent distress - Head Head exam: Present: atraumatic, normocephalic - Eye Eye exam: Present: normal appearance Pupils: Present: normal accommodation - ENT ENT exam: Present: normal exam - Neck Neck exam: Present: normal inspection - Respiratory Respiratory exam: Present: normal lung sounds bilaterally - Cardiovascular Cardiovascular Exam: Present: regular rate, normal rhythm - GI/Abdominal GI/Abdominal exam: Present: soft, tenderness (EPIGASTRIC), normal bowel sounds - Rectal Rectal exam: Present: deferred - Back Exam Back exam: Present: normal inspection - Neurological Exam Neurological exam: Present: alert, oriented X3 - Psychiatric Psychiatric exam: Present: normal affect - Skin Skin exam: Present: warm ED Course Vital Signs 03/12/19 03/12/19 03/12/19 02:46 05:23 05:31 Temperature 98 F Pulse Rate 132 H 110 H Respiratory 18 20 20 Rate Blood Pressure 143/118 Blood Pressure 193/138 [Left] O2 Sat by Pulse 100 100 100 Oximetry ED Medical Decision Making - Lab Data Result diagrams: 03/12/19 02:52 03/12/19 02:52 - Medical Decision Making The patient is a 43 y.o female who presents to the E/R complaining of epigastric pain that began 2 weeks ago while at rest. Symptoms have been intermittent since onset and pt rates them as moderate in severity. Patient reports the symptoms are located in her upper abdomen and describes the quality as sharp. Pain radiates to throat. Symptoms associated with nausea, but denies any hematemesis, melena or hematochezia. Symptoms are improved with nothing and exacerbated by eating. Patient reports history of similar symptoms. Pertinent medical history includes alcohol abuse, h.pylori. CT Showed mild pancreatitis, mild elev of lipase, t.gus, unable to get pain free, will admit for obs. - Differential Diagnosis CHOLECYSTITIS,PANCREATITIS,GERD Critical care attestation.: If time is entered above; I have spent that time in minutes in the direct care of this critically ill patient, excluding procedure time. ED Disposition Clinical Impression: Abdominal pain Qualifiers: Abdominal location: generalized Qualified Code(s): R10.84 - Generalized abdominal pain Pancreatitis, alcoholic, acute Qualifiers: Acute pancreatitis complication: unspecified Qualified Code(s): K85.20 - Alcohol induced acute pancreatitis without necrosis or infection Disposition: DC-09 OP ADMIT IP TO THIS HOSP Is pt being admited?: No Does the pt Need Aspirin: No Condition: Stable Instructions: Abdominal Pain (ED) Referrals: ANAND TALLEY NP [Primary Care Provider] - 3-5 Days
[2019-03-12 05:56] LABS: Mucus,Urine 1+ /HPF
[2019-03-12 06:13] LABS: Bilirubin,Urine NEG (Negative); Blood,Urine NEG (Negative); Color,Urine Yellow (Yellow); Urobilinogen,Urine < 2.0 mg/dL (<2.0)
--- NOTE | 2019-03-12 06:16 | Cat Scan Report ---
PROCEDURE: CT ABDOMEN PELVIS W CON TECHNIQUE: Computerized axial tomography of the abdomen and pelvis was performed after the IV inject ion of iodinated nonionic contrast. HISTORY: abd pain COMPARISONS: None . FINDINGS: Visualized lower thorax: No significant abnormality. Liver: . There is fatty infiltration of the liver.. Spleen: Normal size and attenuation. Gallbladder and biliary system: Normal. Pancreas: The pancreas size is normal. No mass is identified. There is slight. Appendiceal fat stran ding, mild pancreatitis is possible.. Adrenals: Hypertrophy of the left adrenal gland is noted.. Kidneys: Right kidney is identified within the pelvis. This has not changed. No hydronephrosis. There is a 2 cm cyst off the lateral left renal cortical region. No renal stones.. GI tract: The stomach is normal. The small bowel has normal caliber without obstruction. No ileus or enteritis. The cecum, appendix and colon are normal. Mild diverticular change in the distal colon. N o inflammatory process . Lymph nodes and mesentery: Normal. Vasculature: Normal.. Bladder: Normal. Reproductive organs: Normal. Peritoneum: No free fluid. Musculoskeletal structures: Mild degenerative changes of the lower lumbar spine with degenerative dis c changes at the L5-S1 level. Other: None . IMPRESSION: Slight stranding of the peripancreatic fat at the head of the pancreas, mild pancreatiti s is possible. No complications. No masses are identified. There is no evidence of intestinal or urinary tract obstruction. No ileus or enteritis. The appendix is normal. Right pelvic kidney is unchanged. . This document is electronically signed by Lana Myers DO., Mar 12 2019 06:13:56 AM ET
[2019-03-12] MEDS ORDERED: ATIVAN IV PRN ×3 (11:23)
[2019-03-12] MEDS ORDERED: TYLENOL PO PRN (11:25)
[2019-03-12] MEDS ORDERED: SODIUM CHLORIDE FLUSH SYRINGE 10 ML IV PRN (11:25)
[2019-03-12] MEDS ORDERED: ZOFRAN IV PRN (11:25)
[2019-03-12] MEDS ORDERED: MORPHINE IV PRN (11:25)
[2019-03-12] MEDS ORDERED: PROVENTIL IH PRN (11:25)
[2019-03-12] MEDS ORDERED: DILAUDID IV PRN (11:25)
[2019-03-12] MEDS ORDERED: NON-FORMULARY (Clonazepam [Klonopin] 1 MG) PO PRN (11:28)
--- NOTE | 2019-03-12 11:38 | History and Physical Report ---
History of Present Illness Date of examination: 03/12/19 Date of admission: 03/12/19 08:51 Chief complaint: Abdominal pain History of present illness: 43-year-old -[place]an female with past medical history significant for alcohol abuse, hypertension, pancreatitis, COPD presented to the emergency department with complaints of epigastric pain that worsened since yesterday. Pain was done, it are both in intensity, no alleviating or aggravating factors identified. With radiation to the back. Abdominal pain is associated with nausea and vomiting. Patient had episodes of 10 times of vomiting yesterday and diarrhea 4 times. Patient denied any fever, chills, cough. Patient was diagnosed with pancreatitis and was admitted here earlier about a month ago, but should continue to drink alcohol. Patient drinks about 6 packs of beer and a pint of hard liquor every day. REVIEW OF SYSTEMS: GENERAL: no weight change, no fatigue, no fever HEAD: no head ache EYES: no blurry vision, no acute visual loss EARS: no hearing loss, no discharge, no earache NOSE: no stuffiness, no sneezing, no discharge MOUTH, THROAT AND NECK: no bleeding gums, no sore throat, no swollen neck CARDIAC: no palpitations, no dyspnea on exertion, no orthopnea, no PND, no edema, no chest pain RESPIRATORY: no shortness of breath, no wheeze, no cough, no sputum, no hemoptysis, no asthma GI: As stated in the HPI. URINARY: no change in frequency, no urgency, no polyuria, no hematuria, no incontinence MUSCULOSKELETAL: no muscle weakness, no pain, no joint stiffness NEUROLOGIC: no loss of sensation/numbness, no tingling, no tremors, no weakness/paralysis HEMATOLOGIC: no anemia, no easy bruising SKIN: no rashes ENDOCRINE: no heat/cold intolerance, no polyuria, no polydipsia, no thyroid problems, no diabetes PSYCHIATRIC: no anxiety, no depression, no suicidal ideations Past History Past Medical History: COPD, hypertension Past Surgical History: Other (thyroidectomy) Social history: smoking (Half Pack cigarettes a day), alcohol abuse (as stated in HPI), full code. denies: prescription drug abuse, IV drug use Family history: hypertension (runs in the family) Medications and Allergies Allergies Allergy/AdvReac Type Severity Reaction Status Date / Time FRANK Inhibitors Allergy Hives Verified 08/28/18 04:37 hydrochlorothiazide Allergy Hives Verified 08/28/18 04:37 Home Medications Medication Instructions Recorded Confirmed Last Taken Type Amlodipine Besylate [Norvasc] 10 mg PO DAILY 10/22/18 03/12/19 10/22/17 09:00 History Atenolol [Tenormin] 25 mg PO DAILY 10/22/18 03/12/19 10/22/18 09:00 History AtorvaSTATin 10 mg PO DAILY 10/22/18 03/12/19 10/22/18 09:00 History OLANZapine 20 mg PO HS 10/22/18 03/12/19 10/21/18 21:00 History clonazePAM [Klonopin] 1 mg PO DAILY PRN 10/22/18 03/12/19 10/22/18 09:00 History Acetaminophen/Codeine [Tylenol 1 tab PO Q6H PRN #12 tab 01/03/19 03/12/19 Unknown Rx /Codeine # 3 tab] Ondansetron [Zofran Odt] 4 mg PO Q8HR PRN #20 tab.rapdis 01/03/19 03/12/19 Unknown Rx Active Meds: Active Medications Acetaminophen (Tylenol) 650 mg PO Q4H PRN PRN Reason: Pain MILD(1-3)/Fever >100.5/SZYMANSKI Albuterol (Proventil) 2.5 mg IH Q4HRT PRN PRN Reason: Shortness Of Breath Amlodipine Besylate (Norvasc) 10 mg PO DAILY AMANDEEP Atenolol (Tenormin) 25 mg PO DAILY AMANDEEP Hydromorphone HCl (Dilaudid) 0.5 mg IV Q3H PRN PRN Reason: Pain, Moderate (4-6) Folic Acid 1 mg/ Multivitamins /Minerals 10 ml/ Thiamine HCl 100 mg/ Sodium Chloride 1,000 mls @ 125 mls/hr IV .BY DURATION AMANDEEP Sodium Chloride (Nacl 0.9% 1000 Ml) 1,000 mls @ 125 mls/hr IV .BY DURATION AMANDEEP Lorazepam (Ativan) 2 mg IV Q1H PRN PRN Reason: CIWA-Ar 8-15 Lorazepam (Ativan) 4 mg IV Q1H PRN PRN Reason: CIWA-Ar 16-25 Lorazepam (Ativan) 4 mg IV Q15MIN PRN PRN Reason: CIWA-Ar >25 Miscellaneous Medication (Atorvastatin) 10 mg PO DAILY AMANDEEP Miscellaneous Medication (Clonazepam [Klonopin]) 1 mg PO DAILY PRN PRN Reason: Anxiety Miscellaneous Medication (Olanzapine) 20 mg PO HS AMANDEEP Morphine Sulfate (Morphine) 2 mg IV Q4H PRN PRN Reason: Pain, Moderate (4-6) Ondansetron HCl (Zofran) 4 mg IV Q8H PRN PRN Reason: Nausea And Vomiting Sodium Chloride (Sodium Chloride Flush Syringe 10 Ml) 10 ml IV BID AMANDEEP Sodium Chloride (Sodium Chloride Flush Syringe 10 Ml) 10 ml IV PRN PRN PRN Reason: LINE FLUSH Exam - Physical Exam Narrative exam: Not in cardiopulmonary distress. The patient appeared well nourished and normally developed. Vital signs as documented. Head exam is unremarkable. No scleral icterus . Neck is without jugular venous distension, thyromegaly, or carotid bruits. Lungs are clear to auscultation. Cardiac exam reveals regular rate and Rhythm. First and second heart sounds normal. No murmurs, rubs or gallops. Abdominal exam reveals tenderness all over her abdomen with no guarding or rigidity. Extremities are nonedematous and both femoral and pedal pulses are normal. 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 No focal weakness. - Constitutional Vitals: Temp Pulse Resp BP Pulse Ox 98 F 110 H 20 158/112 99 03/12/19 02:46 03/12/19 05:31 03/12/19 05:31 03/12/19 07:30 03/12/19 07:30 Results - Labs CBC & Chem 7: 03/12/19 02:52 03/12/19 02:52 Labs: Laboratory Last Values WBC 11.4 K/mm3 (4.5-11.0) H 03/12/19 02:52 RBC 4.16 M/mm3 (3.65-5.03) 03/12/19 02:52 Hgb 12.4 gm/dl (10.1-14.3) 03/12/19 02:52 Hct 37.7 % (30.3-42.9) 03/12/19 02:52 MCV 91 fl (79-97) 03/12/19 02:52 MCH 30 pg (28-32) 03/12/19 02:52 MCHC 33 % (30-34) 03/12/19 02:52 RDW 16.6 % (13.2-15.2) H 03/12/19 02:52 Plt Count 182 K/mm3 (140-440) 03/12/19 02:52 Lymph % (Auto) 9.1 % (13.4-35.0) L 03/12/19 02:52 Day % (Auto) 5.9 % (0.0-7.3) 03/12/19 02:52 Eos % (Auto) 0.1 % (0.0-4.3) 03/12/19 02:52 Baso % (Auto) 0.2 % (0.0-1.8) 03/12/19 02:52 Lymph # 1.0 K/mm3 (1.2-5.4) L 03/12/19 02:52 Day # 0.7 K/mm3 (0.0-0.8) 03/12/19 02:52 Eos # 0.0 K/mm3 (0.0-0.4) 03/12/19 02:52 Baso # 0.0 K/mm3 (0.0-0.1) 03/12/19 02:52 Seg Neutrophils % 84.7 % (40.0-70.0) H 03/12/19 02:52 Seg Neutrophils # 9.7 K/mm3 (1.8-7.7) H 03/12/19 02:52 Sodium 135 mmol/L (137-145) L 03/12/19 02:52 Potassium 3.8 mmol/L (3.6-5.0) 03/12/19 02:52 Chloride 92.5 mmol/L (98-107) L 03/12/19 02:52 Carbon Dioxide 22 mmol/L (22-30) 03/12/19 02:52 24 mmol/L 03/12/19 02:52 BUN 4 mg/dL (7-17) L 03/12/19 02:52 0.5 mg/dL (0.7-1.2) L 03/12/19 02:52 Estimated GFR > 60 ml/min 03/12/19 02:52 8 % 03/12/19 02:52 Glucose 165 mg/dL (65-100) H 03/12/19 02:52 Calcium 10.1 mg/dL (8.4-10.2) 03/12/19 02:52 1.40 mg/dL (0.1-1.2) H 03/12/19 02:52 AST 39 units/L (5-40) 03/12/19 02:52 ALT 26 units/L (7-56) 03/12/19 02:52 100 units/L (35-129) 03/12/19 02:52 7.8 g/dL (6.3-8.2) 03/12/19 02:52 4.3 g/dL (3.9-5) 03/12/19 02:52 1.2 % 03/12/19 02:52 105 units/L (13-60) H 03/12/19 02:52 HCG, Qual Negative (Negative) 03/12/19 04:44 Yellow (Yellow) 03/12/19 05:19 Slightly-cloudy (Clear) 03/12/19 05:19 5.0 (5.0-7.0) 03/12/19 05:19 Ur Specific [place] 1.020 (1.003-1.030) 03/12/19 05:19 100 mg/dl mg/dL (Negative) 03/12/19 05:19 50 mg/dL (Negative) 03/12/19 05:19 80 mg/dL (Negative) 03/12/19 05:19 Neg (Negative) 03/12/19 05:19 Neg (Negative) 03/12/19 05:19 Ur Reducing Substances Not Reportable 03/12/19 05:19 Neg (Negative) 03/12/19 05:19 Not Reportable 03/12/19 05:19 < 2.0 mg/dL (<2.0) 03/12/19 05:19 Ur Leukocyte Esterase Neg (Negative) 03/12/19 05:19 3.0 /HPF (0.0-6.0) 03/12/19 05:19 2.0 /HPF (0.0-6.0) 03/12/19 05:19 U Epithel Cells (Auto) 2.0 /HPF (0-13.0) 03/12/19 05:19 1+ /HPF 03/12/19 05:19 Assessment and Plan Assessment and plan: 43-year-old -[place] female with past medical history significant for hypertension, pancreatitis, alcohol abuse presents to the emergency department with complaints of severe abdominal pain. Acute pancreatitis - Elevated lipase, right upper quadrant pain, CT suggestive of pancreatitis, no complications - Pain control, start his clear liquid diet as tolerated - IV fluids Alcohol abuse - CIWA protocol, banana bag Hypertension - Resume all medications COPD - Not in exacerbation, continue his albuterol when necessary DVT prophylaxis - Lovenox Disposition - Admitted to inpatient care Advance Directives: Yes VTE prophylaxis?: Chemical Plan of care discussed with patient/family: Yes
[2019-03-12] MEDS ORDERED: 1: FOLVITE 1 MG, INFUVITE 10 ML, VITAMIN B-1 100 MG in NACL 0.9% 1000 ML 988.8 ML 2: NA IV SCH (12:00)
[2019-03-12] MEDS: TENORMIN PO SCH (12:41)
[2019-03-12] MEDS: NORVASC PO SCH (12:44)
[2019-03-12] MEDS: VITAMIN B-1 100 MG, FOLVITE 1 MG, INFUVITE 10 ML in NACL 0.9% 1000 ML 1,000 ML IV SCH (14:03)
[2019-03-12] MEDS ORDERED: NORMODYNE IV PRN (18:06)
[2019-03-12] MEDS: DILAUDID IV PRN ×2 (18:16→22:26)
[2019-03-12] MEDS ORDERED: OLANZAPINE 20 MG PO SCH (22:00)
[2019-03-12] MEDS: SODIUM CHLORIDE FLUSH SYRINGE 10 ML IV SCH ×2 (22:00→22:34)
[2019-03-12] MEDS: LOVENOX SUB-Q SCH (22:26)
[2019-03-13 05:50] LABS: Basophils % (Auto) 0.4 % (0.0-1.8); Eosinophils % (Auto) 0.2 % (0.0-4.3); Hematocrit 32.7 % (30.3-42.9); Lymphocytes # (Auto) 0.8 K/mm3 (1.2-5.4); Lymphocytes % (Auto) 8.4 % (13.4-35.0); Mean Corpuscular HGB Conc 34 % (30-34); Mean Corpuscular Volume 90 fl (79-97); Monocytes # (Auto) 0.6 K/mm3 (0.0-0.8); Monocytes % (Auto) 6.5 % (0.0-7.3); Platelet Count 149 K/mm3 (140-440); Red Blood Count 3.65 M/mm3 (3.65-5.03); Red Cell Distribution Width 16.6 % (13.2-15.2)
[2019-03-13 06:00] LABS: BUN/Creatinine Ratio 5; Blood Urea Nitrogen 2 mg/dL (7-17); Calcium 8.7 mg/dL (8.4-10.2); Hemolysis Index 4
[2019-03-13] MEDS: NACL 0.9% 1000 ML 1,000 ML IV SCH ×2 (08:56)
[2019-03-13] MEDS ORDERED: K-DUR PO ONE ×3 (09:00→13:00)
[2019-03-13] MEDS: DILAUDID IV PRN ×3 (09:31→23:24)
[2019-03-13] MEDS: TENORMIN PO SCH (09:32)
[2019-03-13] MEDS: NORVASC PO SCH (09:32)
[2019-03-13] MEDS: SODIUM CHLORIDE FLUSH SYRINGE 10 ML IV SCH ×2 (09:33→23:18)
[2019-03-13] MEDS ORDERED: NON-FORMULARY (Atorvastatin 10 MG) PO SCH (10:00)
--- NOTE | 2019-03-13 11:03 | Progress Note ---
Assessment and Plan Assessment and plan: 43-year-old -[place]ese female with past medical history significant for hypertension, pancreatitis, alcohol abuse presents to the emergency department with complaints of severe abdominal pain. Acute pancreatitis - Elevated lipase, right upper quadrant pain, CT suggestive of pancreatitis, no complications - Pain control, start his clear liquid diet as tolerated - IV fluids - Lipase is trending down Alcohol abuse - CIWA protocol, banana bag - Extensively counseled about cessation of alcohol Hypertension - Resume all medications COPD - Not in exacerbation, continue his albuterol when necessary DVT prophylaxis - Lovenox Disposition - Continue inpatient care. DC when pain is controlled adequately. History Interval history: Patient was seen and evaluated this morning, patient is complaining abdominal pain, denied any nausea or vomiting. Hospitalist Physical - Physical exam Narrative exam: Not in cardiopulmonary distress. The patient appeared well nourished and normally developed. Vital signs as documented. Head exam is unremarkable. No scleral icterus . Neck is without jugular venous distension, thyromegaly, or carotid bruits. Lungs are clear to auscultation. Cardiac exam reveals regular rate and Rhythm. First and second heart sounds normal. No murmurs, rubs or gallops. Abdominal exam reveals tenderness all over her abdomen with no guarding or rigidity. Extremities are nonedematous and both femoral and pedal pulses are normal. PHOTO EDITOR: Alert and oriented 3. No focal weakness. - Constitutional Vitals: Temp Pulse Resp BP Pulse Ox 98.6 F 100 H 18 110/76 98 03/13/19 06:08 03/13/19 06:08 03/13/19 06:08 03/13/19 09:32 03/13/19 06:08 Results - Labs CBC & Chem 7: 03/13/19 05:23 03/13/19 05:23 Labs: Laboratory Last Values WBC 9.5 K/mm3 (4.5-11.0) 03/13/19 05:23 RBC 3.65 M/mm3 (3.65-5.03) 03/13/19 05:23 Hgb 11.0 gm/dl (10.1-14.3) 03/13/19 05:23 Hct 32.7 % (30.3-42.9) 03/13/19 05:23 MCV 90 fl (79-97) 03/13/19 05:23 MCH 30 pg (28-32) 03/13/19 05:23 MCHC 34 % (30-34) 03/13/19 05:23 RDW 16.6 % (13.2-15.2) H 03/13/19 05:23 Plt Count 149 K/mm3 (140-440) 03/13/19 05:23 Lymph % (Auto) 8.4 % (13.4-35.0) L 03/13/19 05:23 [place] % (Auto) 6.5 % (0.0-7.3) 03/13/19 05:23 Eos % (Auto) 0.2 % (0.0-4.3) 03/13/19 05:23 Baso % (Auto) 0.4 % (0.0-1.8) 03/13/19 05:23 Lymph # 0.8 K/mm3 (1.2-5.4) L 03/13/19 05:23 [place] # 0.6 K/mm3 (0.0-0.8) 03/13/19 05:23 Eos # 0.0 K/mm3 (0.0-0.4) 03/13/19 05:23 Baso # 0.0 K/mm3 (0.0-0.1) 03/13/19 05:23 Seg Neutrophils % 84.5 % (40.0-70.0) H 03/13/19 05:23 Seg Neutrophils # 8.0 K/mm3 (1.8-7.7) H 03/13/19 05:23 Sodium 136 mmol/L (137-145) L 03/13/19 05:23 Potassium 3.0 mmol/L (3.6-5.0) L D 03/13/19 05:23 Chloride 96.9 mmol/L (98-107) L 03/13/19 05:23 Carbon Dioxide 24 mmol/L (22-30) 03/13/19 05:23 18 mmol/L 03/13/19 05:23 BUN 2 mg/dL (7-17) L 03/13/19 05:23 0.4 mg/dL (0.7-1.2) L 03/13/19 05:23 Estimated GFR > 60 ml/min 03/13/19 05:23 5 % 03/13/19 05:23 Glucose 112 mg/dL (65-100) H 03/13/19 05:23 Calcium 8.7 mg/dL (8.4-10.2) 03/13/19 05:23 1.40 mg/dL (0.1-1.2) H 03/12/19 02:52 AST 39 units/L (5-40) 03/12/19 02:52 ALT 26 units/L (7-56) 03/12/19 02:52 100 units/L (35-129) 03/12/19 02:52 7.8 g/dL (6.3-8.2) 03/12/19 02:52 4.3 g/dL (3.9-5) 03/12/19 02:52 1.2 % 03/12/19 02:52 62 units/L (13-60) H 03/13/19 08:07 HCG, Qual Negative (Negative) 03/12/19 04:44 Yellow (Yellow) 03/12/19 05:19 Slightly-cloudy (Clear) 03/12/19 05:19 5.0 (5.0-7.0) 03/12/19 05:19 Ur Specific [place] 1.020 (1.003-1.030) 03/12/19 05:19 100 mg/dl mg/dL (Negative) 03/12/19 05:19 50 mg/dL (Negative) 03/12/19 05:19 80 mg/dL (Negative) 03/12/19 05:19 Neg (Negative) 03/12/19 05:19 Neg (Negative) 03/12/19 05:19 Ur Reducing Substances Not Reportable 03/12/19 05:19 Neg (Negative) 03/12/19 05:19 Not Reportable 03/12/19 05:19 < 2.0 mg/dL (<2.0) 03/12/19 05:19 Ur Leukocyte Esterase Neg (Negative) 03/12/19 05:19 3.0 /HPF (0.0-6.0) 03/12/19 05:19 2.0 /HPF (0.0-6.0) 03/12/19 05:19 U Epithel Cells (Auto) 2.0 /HPF (0-13.0) 03/12/19 05:19 1+ /HPF 03/12/19 05:19 Active Medications - Current Medications Current Medications: Generic Name Dose Route Start Last Admin Trade Name Freq PRN Reason Stop Dose Admin Acetaminophen 650 mg 03/12/19 11:25 Tylenol PO Q4H PRN Pain MILD(1-3)/Fever >100.5/SZYMANSKI Albuterol 2.5 mg 03/12/19 11:25 Proventil IH Q4HRT PRN Shortness Of Breath Amlodipine Besylate 10 mg 03/12/19 12:00 03/13/19 09:32 Norvasc PO 10 mg DAILY AMANDEEP Administration Atenolol 25 mg 03/12/19 12:00 03/13/19 09:32 Tenormin PO 25 mg DAILY AMANDEEP Administration Atorvastatin Calcium 10 mg 03/12/19 22:00 03/12/19 22:25 Lipitor PO 10 mg QHS AMANDEEP Administration Clonazepam 1 mg 03/12/19 11:44 Klonopin PO DAILY PRN Anxiety Enoxaparin Sodium 40 mg 03/12/19 22:00 03/12/19 22:26 Lovenox SUB-Q 40 mg QDAY@2200 AMANDEEP Administration Hydromorphone HCl 1 mg 03/12/19 14:40 03/13/19 09:31 Dilaudid IV 1 mg Q3H PRN Administration Pain , Severe (7-10) Thiamine HCl 100 mg/ Folic 1,011.2 mls @ 125 mls/hr 03/12/19 13:00 03/12/19 14:03 Acid 1 mg/ Multivitamins/ IV 125 mls/hr Minerals 10 ml/ Sodium DAILY AMANDEEP Administration Chloride Sodium Chloride 1,000 mls @ 125 mls/hr 03/12/19 12:00 03/13/19 08:56 Nacl 0.9% 1000 Ml IV 125 mls/hr DIRECT AMANDEEP Administration Labetalol HCl 10 mg 03/12/19 18:06 03/12/19 19:01 Normodyne IV 10 mg Q4HR PRN Administration Blood Pressure Lorazepam 2 mg 03/12/19 11:23 Ativan IV Q1H PRN CIWA-Ar 8-15 Lorazepam 4 mg 03/12/19 11:23 Ativan IV Q1H PRN CIWA-Ar 16-25 Lorazepam 4 mg 03/12/19 11:23 Ativan IV Q15MIN PRN CIWA-Ar >25 Olanzapine 20 mg 03/12/19 22:00 03/12/19 22:25 Zyprexa PO 20 mg QHS AMANDEEP Administration Ondansetron HCl 4 mg 03/12/19 11:25 Zofran IV Q8H PRN Nausea And Vomiting Potassium Chloride 40 meq 03/13/19 13:00 K-Dur PO 03/13/19 13:01 ONCE ONE Sodium Chloride 10 ml 03/12/19 12:00 03/13/19 09:33 Sodium Chloride Flush Syringe 10 Ml IV 10 ml BID AMANDEEP Administration Sodium Chloride 10 ml 03/12/19 11:25 Sodium Chloride Flush Syringe 10 Ml IV PRN PRN LINE FLUSH
[2019-03-13] MEDS: VITAMIN B-1 100 MG, FOLVITE 1 MG, INFUVITE 10 ML in NACL 0.9% 1000 ML 1,000 ML IV SCH (14:34)
[2019-03-13] MEDS: LOVENOX SUB-Q SCH (23:16)
[2019-03-14] MEDS: NACL 0.9% 1000 ML 1,000 ML IV SCH (05:41)
[2019-03-14] MEDS: NORVASC PO SCH (09:55)
[2019-03-14] MEDS: TENORMIN PO SCH (09:55)
[2019-03-14] MEDS: SODIUM CHLORIDE FLUSH SYRINGE 10 ML IV SCH (09:56)
[2019-03-14 11:36] VITALS: BP 104/68
--- NOTE | 2019-03-14 12:28 | Discharge Summary ---
Providers - Providers Date of Admission: 03/12/19 08:51 Attending physician: JANELLE GOMES MD Primary care physician: ANAND TALLEY Hospitalization Condition: Stable Hospital course: 43-year-old -[place] female with past medical history significant for hypertension, pancreatitis, alcohol abuse presents to the emergency department with complaints of severe abdominal pain. Acute pancreatitis - Treated with IV fluids, pain meds and bowel rest, improved Alcohol abuse - CIWA protocol, banana bag - Extensively counseled about cessation of alcohol Hypertension - She was continued on her home medications COPD - Not in exacerbation, continue albuterol when necessary DVT prophylaxis - Lovenox Disposition: DC- TO HOME OR SELFCARE Time spent for discharge: 33 mins Core Measure Documentation - Palliative Care Palliative Care/ Comfort Measures: Not Applicable - Core Measures Any of the following diagnoses?: none Exam - Constitutional Vitals: Temp Pulse Resp BP Pulse Ox 98.0 F 75 18 104/68 97 03/14/19 10:58 03/14/19 10:58 03/14/19 10:58 03/14/19 10:58 03/14/19 10:58 General appearance: Present: no acute distress, well-nourished - EENT Eyes: Present: PERRL ENT: hearing intact, clear oral mucosa - Neck Neck: Present: supple, normal ROM - Respiratory Respiratory effort: normal Respiratory: bilateral: CTA - Cardiovascular Heart Sounds: Present: S1 & S2. Absent: rub, click - Extremities Extremities: pulses symmetrical, No edema Peripheral Pulses: within normal limits - Abdominal General gastrointestinal: Present: soft, non-tender, non-distended, normal bowel sounds Female genitourinary: Present: normal - Integumentary Integumentary: Present: clear, warm, dry - Musculoskeletal Musculoskeletal: gait normal, strength equal bilaterally - Psychiatric Psychiatric: appropriate mood/affect, intact judgment & insight - Neurologic Neurologic: CNII-XII intact, moves all extremities Plan Follow up with: ANAND TALLEY NP [Primary Care Provider] - 3-5 Days Prescriptions: oxyCODONE /ACETAMINOPHEN [Percocet 5/325] 1 tab PO Q6HR PRN #20 tablet PRN Reason: Pain Ondansetron [Zofran ODT TAB] 4 mg PO Q8HR PRN #20 tab.rapdis PRN Reason: Nausea
== END 2019-03-14 15:10 | disposition home or self-care (01) ==
LOC: ED 02:41 → 3A 08:51
PROVIDERS: ADMIT Internal Medicine; ATTEND Internal Medicine
DX: K85.90 Acute pancreatitis without necrosis or infection, unspecified (principal); F10.10 Alcohol abuse, uncomplicated; I10 Essential (primary) hypertension; J44.9 Chronic obstructive pulmonary disease, unspecified; R11.10 Vomiting, unspecified; F17.210 Nicotine dependence, cigarettes, uncomplicated; Z79.899 Other long term (current) drug therapy
CPT/HCPCS: 36415; 74177; 80048; 80053; 81001; 83690; 84703; 85025; 93005; 93010; 96361; 96365; 96366; 96372; 96375; 96376; 99284; 99406; A9270; G0378; J1170; J1650; J2270; J2405; J3411; J7030; Q9967

== ENCOUNTER 2019-12-18 19:38 | Emergency (ER) | payer MEDICAID ==
--- NOTE | 2019-12-18 19:56 | Event Note ---
ED Screening Note Date of service: 12/18/19 Time: 19:53 ED Screening Note: Pt complains of cough and SOB x 2 weeks and back and right side pain x 2 days denies urinary symptoms hx of pancreatitis-alcohol +vomiting Hx of COPD This initial assessment/diagnostic orders/clinical plan/treatment(s) is/are subject to change based on patients health status, clinical progression and re- assessment by fellow clinical providers in the ED. Further treatment and workup at subsequent clinical providers discretion. Patient/guardian urged not to elope from the ED as their condition may be serious if not clinically assessed and managed. Initial orders include: labs CXR
--- NOTE | 2019-12-18 20:24 | XRay Report ---
CHEST 2 VIEWS INDICATION / CLINICAL INFORMATION: shortness of breath, cough. COMPARISON: None available. FINDINGS: SUPPORT DEVICES: None. HEART / MEDIASTINUM: No significant abnormality. LUNGS / PLEURA: No significant pulmonary or pleural abnormality. No pneumothorax. ADDITIONAL FINDINGS: No significant additional findings. IMPRESSION: 1. No acute findings. Signer Name: Miguel Hammond MD Signed: 12/18/2019 8:19 PM Workstation Name: [id number]
[2019-12-18 20:25] LABS: Basophils # (Auto) 0.1 K/mm3 (0.0-0.1); Basophils % (Auto) 1.5 % (0.0-1.8); Eosinophils % (Auto) 0.3 % (0.0-4.3); Hemoglobin 13.7 gm/dl (10.1-14.3); Lymphocytes # (Auto) 1.7 K/mm3 (1.2-5.4); Lymphocytes % (Auto) 17.9 % (13.4-35.0); Mean Corpuscular HGB Conc 34 % (30-34); Mean Corpuscular Volume 87 fl (79-97); Monocytes # (Auto) 0.4 K/mm3 (0.0-0.8); Monocytes % (Auto) 4.7 % (0.0-7.3); Platelet Count 283 K/mm3 (140-440); Red Blood Count 4.71 M/mm3 (3.65-5.03); Red Cell Distribution Width 13.3 % (13.2-15.2)
[2019-12-18 20:33] LABS: BUN/Creatinine Ratio 10; Blood Urea Nitrogen 6 mg/dL (7-17); Hemolysis Index 2
[2019-12-18 20:37] LABS: Alanine Aminotransferase 25 units/L (7-56); Albumin 4.7 g/dL (3.9-5)
[2019-12-18 20:38] LABS: Bilirubin,Direct < 0.2 mg/dL (0-0.2)
[2019-12-18 21:13] LABS: Bilirubin,Urine NEG (Negative); Blood,Urine NEG (Negative); Color,Urine Yellow (Yellow); Mucus,Urine FEW /HPF; Protein,Urine <15 mg/dL mg/dL (Negative); Urobilinogen,Urine < 2.0 mg/dL (<2.0)
[2019-12-18] MEDS ORDERED: dexAMETHasone 20 MG/5 ML VIAL IV ONE (21:56)
[2019-12-18] MEDS ORDERED: SODIUM CHLORIDE 0.9% 1000 ML 1,000 ML IV ONE (21:56)
[2019-12-18] MEDS ORDERED: IPRATROPIUM/ALBUTEROL SULFATE 3 ML AMPUL.NEB IH ONE (21:56)
[2019-12-18] MEDS ORDERED: MORPHINE 4 MG/1 ML INJ IV ONE (21:56)
[2019-12-18] MEDS ORDERED: ONDANSETRON 4 MG/2 ML INJ IV ONE (21:56)
--- NOTE | 2019-12-18 22:48 | Emergency Department Report ---
ED General Adult HPI - General Chief complaint: Dyspnea/Respdistress Stated complaint: TAMERA/FLU SYMPTOMS Time Seen by Provider: 12/18/19 19:53 Source: patient Mode of arrival: Ambulatory Limitations: No Limitations - History of Present Illness Initial comments: Patient is a 44-year-old female presents emergency room with complaints of cold symptoms that began a week ago. She has associated cough, nasal congestion, intermittent shortness of breath, nausea. She states that also for the last 2 days she has had right-sided back pain. She denies any heavy lifting, fall, injury. She denies any vomiting, diarrhea, fever, urinary symptoms. She denies any history of cancer, IV drug use, steroid use. She has a past medical history of HTN, HLD, COPD, pancreatitis. She states that she did not take her blood pressure medications for the last 3 days secondary to nausea. - Related Data Home Medications Medication Instructions Recorded Confirmed Last Taken Amlodipine Besylate [Norvasc] 10 mg PO DAILY 10/22/18 03/12/19 10/22/17 09:00 AtorvaSTATin 10 mg PO DAILY 10/22/18 03/12/19 10/22/18 09:00 OLANZapine 20 mg PO HS 10/22/18 03/12/19 10/21/18 21:00 atenoloL [Tenormin] 25 mg PO DAILY 10/22/18 03/12/19 10/22/18 09:00 Lansoprazole Nicu (3 mg/ml) 30 mg PO BID 03/13/19 03/13/19 03/11/19 Previous Rx's Medication Instructions Recorded Last Taken Type Ondansetron [Zofran ODT TAB] 4 mg PO Q8HR PRN #20 tab.rapdis 03/14/19 Unknown Rx oxyCODONE /ACETAMINOPHEN [Percocet 1 tab PO Q6HR PRN #20 tablet 03/14/19 Unknown Rx 5/325] Albuterol INH(or & Nicu Only) 2 puff IH QID PRN #8.5 gram 12/19/19 Unknown Rx [ProAir HFA Inhaler] Azithromycin 500 mg PO DAILY 3 Days #3 tablet 12/19/19 Unknown Rx Prednisone [predniSONE 10 mg 10 mg PO .TAPER #1 tab.ds.pk 12/19/19 Unknown Rx (6-Day Pack, 21 Tabs)] Promethazine [Phenergan] 25 mg PO Q8HR PRN #10 tab 12/19/19 Unknown Rx methOCARBAMOL [Robaxin TAB] 500 mg PO QHS PRN #10 tab 12/19/19 Unknown Rx Allergies Allergy/AdvReac Type Severity Reaction Status Date / Time FRANK Inhibitors Allergy Hives Verified 08/28/18 04:37 hydrochlorothiazide Allergy Hives Verified 08/28/18 04:37 ED Review of Systems ROS: Stated complaint: TAMERA/FLU SYMPTOMS Other details as noted in HPI Comment: All other systems reviewed and negative ED Past Medical Hx - Past Medical History Previous Medical History?: Yes Hx Hypertension: Yes Hx Congestive Heart Failure: No Hx Diabetes: No Hx Asthma: No Hx COPD: Yes Additional medical history: high cholesterol. h pylori. pancreatisis - Surgical History Past Surgical History?: Yes Additional Surgical History: thyroid. Uterine ablasion - Social History Smoking Status: Current Every Day Smoker Substance Use Type: Marijuana - Medications Home Medications: Home Medications Medication Instructions Recorded Confirmed Last Taken Type Amlodipine Besylate [Norvasc] 10 mg PO DAILY 10/22/18 03/12/19 10/22/17 09:00 History AtorvaSTATin 10 mg PO DAILY 10/22/18 03/12/19 10/22/18 09:00 History OLANZapine 20 mg PO HS 10/22/18 03/12/19 10/21/18 21:00 History atenoloL [Tenormin] 25 mg PO DAILY 10/22/18 03/12/19 10/22/18 09:00 History Lansoprazole Nicu (3 mg/ml) 30 mg PO BID 03/13/19 03/13/19 03/11/19 History Ondansetron [Zofran ODT TAB] 4 mg PO Q8HR PRN #20 tab.rapdis 03/14/19 Unknown Rx oxyCODONE /ACETAMINOPHEN [Percocet 1 tab PO Q6HR PRN #20 tablet 03/14/19 Unknown Rx 5/325] Albuterol INH(or & Nicu Only) 2 puff IH QID PRN #8.5 gram 12/19/19 Unknown Rx [ProAir HFA Inhaler] Azithromycin 500 mg PO DAILY 3 Days #3 tablet 12/19/19 Unknown Rx Prednisone [predniSONE 10 mg 10 mg PO .TAPER #1 tab.ds.pk 12/19/19 Unknown Rx (6-Day Pack, 21 Tabs)] Promethazine [Phenergan] 25 mg PO Q8HR PRN #10 tab 12/19/19 Unknown Rx methOCARBAMOL [Robaxin TAB] 500 mg PO QHS PRN #10 tab 12/19/19 Unknown Rx ED Physical Exam - General Limitations: No Limitations General appearance: alert, in no apparent distress - Head Head exam: Present: atraumatic, normocephalic - Eye Eye exam: Present: normal appearance - ENT ENT exam: Present: mucous membranes moist - Neck Neck exam: Present: normal inspection, full ROM. Absent: tenderness - Respiratory Respiratory exam: Present: wheezes (very mild expiratory wheeze bilaterally). Absent: respiratory distress, rales, rhonchi, stridor, chest wall tenderness, accessory muscle use, decreased breath sounds, prolonged expiratory - Cardiovascular Cardiovascular Exam: Present: regular rate, normal rhythm, normal heart sounds. Absent: systolic murmur, diastolic murmur, rubs, gallop - GI/Abdominal GI/Abdominal exam: Present: soft, normal bowel sounds. Absent: distended, tenderness, guarding, rebound, rigid - Back Exam Back exam: Present: normal inspection, full ROM, paraspinal tenderness (right sided lumbar paraspinal muscular TTP, no midline C-spine, T-spine or L-spine ttp, no step offs, no deformities). Absent: vertebral tenderness - Neurological Exam Neurological exam: Present: alert, oriented X3, CN II-XII intact, normal gait. Absent: motor sensory deficit - Psychiatric Psychiatric exam: Present: normal affect, normal mood - Skin Skin exam: Present: warm, dry, intact ED Course Vital Signs 12/18/19 12/18/19 12/18/19 19:50 20:04 23:35 Temperature 98.3 F Pulse Rate 106 H 110 H Respiratory 18 18 20 Rate Blood Pressure 174/126 Blood Pressure 144/106 139/92 [Left] O2 Sat by Pulse 99 100 96 Oximetry 12/19/19 00:30 Temperature Pulse Rate 89 Respiratory Rate Blood Pressure Blood Pressure [Left] O2 Sat by Pulse 100 Oximetry ED Medical Decision Making - Lab Data Result diagrams: 12/18/19 20:12 12/18/19 20:12 Lab Results 12/18/19 12/18/19 12/18/19 Range/Units 20:12 20:12 20:12 WBC 9.3 (4.5-11.0) K/mm3 RBC 4.71 (3.65-5.03) M/mm3 Hgb 13.7 (10.1-14.3) gm/dl Hct 41.0 (30.3-42.9) % MCV 87 (79-97) fl MCH 29 (28-32) pg MCHC 34 (30-34) % RDW 13.3 (13.2-15.2) % Plt Count 283 (140-440) K/mm3 Lymph % (Auto) 17.9 (13.4-35.0) % [place] % (Auto) 4.7 (0.0-7.3) % Eos % (Auto) 0.3 (0.0-4.3) % Baso % (Auto) 1.5 (0.0-1.8) % Lymph # 1.7 (1.2-5.4) K/mm3 [place] # 0.4 (0.0-0.8) K/mm3 Eos # 0.0 (0.0-0.4) K/mm3 Baso # 0.1 (0.0-0.1) K/mm3 Seg Neutrophils % 75.6 H (40.0-70.0) % Seg Neutrophils # 7.0 (1.8-7.7) K/mm3 Sodium 138 (137-145) mmol/L Potassium 4.8 (3.6-5.0) mmol/L Chloride 100.6 (98-107) mmol/L Carbon Dioxide 21 L (22-30) mmol/L Anion Gap 21 mmol/L BUN 6 L (7-17) mg/dL Creatinine 0.6 L (0.7-1.2) mg/dL Estimated GFR > 60 ml/min BUN/Creatinine Ratio 10 % Glucose 112 H (65-100) mg/dL Calcium 10.0 (8.4-10.2) mg/dL Total Bilirubin 0.80 (0.1-1.2) mg/dL Direct Bilirubin < 0.2 (0-0.2) mg/dL Indirect Bilirubin 0.6 mg/dL AST 33 (5-40) units/L ALT 25 (7-56) units/L Alkaline Phosphatase 86 (35-129) units/L Total Protein 8.5 H (6.3-8.2) g/dL Albumin 4.7 (3.9-5) g/dL Albumin/Globulin Ratio 1.2 % Lipase 135 H (13-60) units/L Urine Color (Yellow) Urine Turbidity (Clear) Urine pH (5.0-7.0) Ur Specific [place] (1.003-1.030) Urine Protein (Negative) mg/dL Urine Glucose (UA) (Negative) mg/dL Urine Ketones (Negative) mg/dL Urine Blood (Negative) Urine Nitrite (Negative) Urine Bilirubin (Negative) Urine Urobilinogen (<2.0) mg/dL Ur Leukocyte Esterase (Negative) Urine WBC (Auto) (0.0-6.0) /HPF Urine RBC (Auto) (0.0-6.0) /HPF U Epithel Cells (Auto) (0-13.0) /HPF Urine Mucus /HPF 12/18/19 Range/Units 20:45 WBC (4.5-11.0) K/mm3 RBC (3.65-5.03) M/mm3 Hgb (10.1-14.3) gm/dl Hct (30.3-42.9) % MCV (79-97) fl MCH (28-32) pg MCHC (30-34) % RDW (13.2-15.2) % Plt Count (140-440) K/mm3 Lymph % (Auto) (13.4-35.0) % [place] % (Auto) (0.0-7.3) % Eos % (Auto) (0.0-4.3) % Baso % (Auto) (0.0-1.8) % Lymph # (1.2-5.4) K/mm3 [place] # (0.0-0.8) K/mm3 Eos # (0.0-0.4) K/mm3 Baso # (0.0-0.1) K/mm3 Seg Neutrophils % (40.0-70.0) % Seg Neutrophils # (1.8-7.7) K/mm3 Sodium (137-145) mmol/L Potassium (3.6-5.0) mmol/L Chloride (98-107) mmol/L Carbon Dioxide (22-30) mmol/L Anion Gap mmol/L BUN (7-17) mg/dL Creatinine (0.7-1.2) mg/dL Estimated GFR ml/min BUN/Creatinine Ratio % Glucose (65-100) mg/dL Calcium (8.4-10.2) mg/dL Total Bilirubin (0.1-1.2) mg/dL Direct Bilirubin (0-0.2) mg/dL Indirect Bilirubin mg/dL AST (5-40) units/L ALT (7-56) units/L Alkaline Phosphatase (35-129) units/L Total Protein (6.3-8.2) g/dL Albumin (3.9-5) g/dL Albumin/Globulin Ratio % Lipase (13-60) units/L Urine Color Yellow (Yellow) Urine Turbidity Clear (Clear) Urine pH 5.0 (5.0-7.0) Ur Specific [place] 1.011 (1.003-1.030) Urine Protein <15 mg/dl (Negative) mg/dL Urine Glucose (UA) Neg (Negative) mg/dL Urine Ketones Neg (Negative) mg/dL Urine Blood Neg (Negative) Urine Nitrite Neg (Negative) Urine Bilirubin Neg (Negative) Urine Urobilinogen < 2.0 (<2.0) mg/dL Ur Leukocyte Esterase Neg (Negative) Urine WBC (Auto) 4.0 (0.0-6.0) /HPF Urine RBC (Auto) 1.0 (0.0-6.0) /HPF U Epithel Cells (Auto) < 1.0 (0-13.0) /HPF Urine Mucus Few /HPF - Radiology Data Radiology results: report reviewed CHEST 2 VIEWS INDICATION / CLINICAL INFORMATION: shortness of breath, cough. COMPARISON: None available. FINDINGS: SUPPORT DEVICES: None. HEART / MEDIASTINUM: No significant abnormality. LUNGS / PLEURA: No significant pulmonary or pleural abnormality. No pneumothorax. ADDITIONAL FINDINGS: No significant additional findings. IMPRESSION: 1. No acute findings. Signer Name: Miguel Hammond MD Signed: 12/18/2019 8:19 PM Workstation Name: [id number] Transcribed By: BC Dictated By: Miguel Hammond MD Electronically Authenticated By: Miguel Hammond MD Signed Date/Time: 12/18/192018 DD/ 18 TD/TT: - Medical Decision Making Patient is a 44-year-old female presents emergency room with complaints of cold symptoms that began a week ago. She has associated cough, nasal congestion, intermittent shortness of breath, nausea. She states that also for the last 2 days she has had right-sided back pain. She denies any heavy lifting, fall, injury. She denies any vomiting, diarrhea, fever, urinary symptoms. She denies any history of cancer, IV drug use, steroid use. She has a past medical history of HTN, HLD, COPD, pancreatitis. She states that she did not take her blood pressure medications for the last 3 days secondary to nausea. on exam: very mild expiratory wheeze bilaterally, no abdominal tenderness to palpation, no guarding, no rebound, no rigidity, normal bowel sounds, right sided lumbar pa raspinal muscular TTP, no midline C-spine, T-spine or L-spine ttp, no step offs, no deformities. Labs are stable. Lipase is 135 does not not appear to be an acute pancreatitis at this time. Patient given 1 L fluid, Zofran, morphine, DuoNeb, steroid. Patient symptoms completely resolved and she was sleeping comfortably. Patient had no further episodes of nausea. She was able to tolerate p.o. intake. Breath sounds are completely clear with good air movement. Back exam consistent with muscle strain, patient does not have any red flag warning signs of back pain. Patient will be treated for acute bronchitis and muscle strain. advised pt to Please take medication as prescribed. Do not drive or operate heavy machinery while taking muscle relaxer due to potential for drowsiness. May use ice pack, heating pad, rest, Epson salt bath. Follow-up with a primary care doctor. Follow-up with a GI doctor. Return to the emergency room for any new or worsening symptoms. - Differential Diagnosis PNA, URI, COPD, Bronchitis, strain, sprain, DDD, DJD, bulging disc Critical care attestation.: If time is entered above; I have spent that time in minutes in the direct care of this critically ill patient, excluding procedure time. ED Disposition Clinical Impression: Nausea Acute bronchitis Qualifiers: Bronchitis organism: unspecified organism Qualified Code(s): J20.9 - Acute bronchitis, unspecified Back pain Qualifiers: Back pain location: low back pain Chronicity: acute Back pain laterality: right Sciatica presence: without sciatica Qualified Code(s): M54.5 - Low back pain Disposition: TO HOME OR SELFCARE Is pt being admited?: No Does the pt Need Aspirin: No Condition: Stable Instructions: Acute Bronchitis (ED), Low Back Strain (ED) Additional Instructions: Please take medication as prescribed. Do not drive or operate heavy machinery while taking muscle relaxer due to potential for drowsiness. May use ice pack, heating pad, rest, Epson salt bath. Follow-up with a primary care doctor. Follow-up with a GI doctor. Return to the emergency room for any new or worsening symptoms. Prescriptions: methOCARBAMOL [Robaxin TAB] 500 mg PO QHS PRN #10 tab PRN Reason: back spasm Azithromycin 500 mg PO DAILY 3 Days #3 tablet Promethazine [Phenergan] 25 mg PO Q8HR PRN #10 tab PRN Reason: Nausea Prednisone [predniSONE 10 mg (6-Day Pack, 21 Tabs)] 10 mg PO .TAPER #1 tab.ds.pk Albuterol INH(or & Nicu Only) [ProAir HFA Inhaler] 2 puff IH QID PRN #8.5 gram PRN Reason: Shortness Of Breath Referrals: PRIMARY CARE, [Referring] - 2-3 Days [facility] [Provider Group] - 2-3 Days Time of Disposition: 00:17 Print Language: GEORGIAN
[2019-12-18 23:36] VITALS: BP 139/92
== END 2019-12-19 00:30 | disposition home or self-care (01) ==
LOC: ED 19:38
DX: J20.9 Acute bronchitis, unspecified (principal); R11.0 Nausea; M54.9 Dorsalgia, unspecified; I10 Essential (primary) hypertension; J44.9 Chronic obstructive pulmonary disease, unspecified; E78.00 Pure hypercholesterolemia, unspecified; F17.200 Nicotine dependence, unspecified, uncomplicated; F12.90 Cannabis use, unspecified, uncomplicated; Z88.8 Allergy status to other drugs, medicaments and biological substances; Z98.890 Other specified postprocedural states; Z88.2 Allergy status to sulfonamides; Z79.899 Other long term (current) drug therapy
CPT/HCPCS: 36415; 71046; 80048; 80076; 81001; 83690; 85025; 94640; 96374; 96375; 99284; J1100; J2270; J2405; J7030